=== PATIENT | female | born 1955 | race Caucasian/White ===

== ENCOUNTER 2020-05-22 17:13 | Inpatient (IN) | payer OTHER, SELFPAY ==
[2020-05-22] VITALS (9 sets, daily range): BP systolic 92–140; BP diastolic 69–91; PULSE 80–100; RESP 13–18; TEMP 36.4–37.1; O2SAT 94–98; BMI 33.2; BMI 28.0
--- NOTE | 2020-05-22 18:25 | EKG12_ITS ---
Test Reason : Blood Pressure : / mmHG Vent. Rate : 090 BPM Atrial Rate : 090 BPM P-R Int : 146 ms QRS Dur : 086 ms QT Int : 352 ms P-R-T Axes : 049 054 028 degrees QTc Int : 430 ms Normal sinus rhythm Normal ECG Confirmed by KRISTIAN SANDOVAL, FELICIA ([id number]), avid editor MANI WILLIS ([id number]) on 05/24/2020 2:07:47 PM Referred By: MAEGAN Confirmed By:OCTAVIO TOWNSEND MD
--- NOTE | 2020-05-22 18:35 | RAD_ITS ---
STUDY: X-RAY CHEST REASON FOR EXAM: Female, 64 years old. COVID positive, shortness of breath TECHNIQUE: Single AP portable view of the chest. COMPARISON: January 15, 2015 FINDINGS: There are monitoring devices. There are mild mid and lower lung increased opacities. There is no demonstrated pleural abnormality. Normal size heart. Normal mediastinum and noah. Normal visualized pulmonary arteries. Normal visualized aortic arch and descending thoracic aorta. Normal visualized thoracic spine. Normal visualized ribs, clavicles, and shoulders. There is no demonstrated abnormality of the visualized soft tissue structures of the upper abdomen. RAD/Chest 1 View (Portable) IMPRESSION: Bilateral pneumonia or edema. Electronically Signed: Troy Trujillo MD at 19:07 EST , Service support ,
--- NOTE | 2020-05-22 18:45 | ED.VISSUMM ---
- ER Visit Summary Date of Service: 05/22/20 Chief Complaint: Shortness of breath History of Present Illness: The patient is a 64 F presenting with shortness of breath. She was diagnosed with Covid on May 16. She states over the past few days she became increasingly short of breath with exertion. She has had a cough. She had near syncope. She has had fatigue. She has had nausea and diarrhea. She denies chest pain. She states she was told to come to the hospital if her pulse ox was low. She states her pulse ox has been 85% on room air. She lives alone. Physical Examination: Vitals are stable. Patient is afebrile. Alert no acute distress. Pulse ox 98% on nasal cannula. HEENT exam is unremarkable. Neck is supple. Lungs are diminished bilaterally. Heart is regular rate and rhythm. Abdomen is soft nontender nondistended. Extremities are unremarkable. Skin is warm and dry. No focal neurologic deficit. Remainder of exam is unremarkable. Emergency Department Course and Treatment: EKG is sinus rhythm rate of 90 with no acute ischemic changes. Chest x-ray shows bilateral pneumonia. CBC shows white count 3.1, chemistries show sodium 132, potassium 3.1, glucose 208, BUN 26, creatinine 1.3. Troponin is negative. She was given Decadron p.o. Patient has been hypoxic at home. She lives alone therefore does not qualify for home O2 protocol from ED. Discussed with the hospitalist for admission. Disposition: Admission Impression: Covid pneumonia, hypoxia This note was generated with [employer] dictation software. It may contain incorrect words, spelling, and punctuation that were not noted in review of the chart prior to signing ED Disposition - Plan for ED Patient: Referrals: Darion Manning MD [Primary Care Provider] -
[2020-05-22 18:50] LABS: Absolute Lymphocyte Count 0.59 X10^3/uL (0.83-4.51); Hemoglobin 12.8 g/dL (12.0-15.0); Lymphocyte # 0.59 X10^3/ul (4.0); Mean Corp Hgb Conc 32.8 g/dL (32-36); Mean Corpuscular Hgb 29.3 pg (27.0-32.0); Mean Corpuscular Volume 89.2 fL (81-99); Mean Platelet Vol. 11.3 fl (6.2-12.0); Monocyte# 0.51 X10^3/uL; Monocyte% 16.5 % (0-10); NRBC Flagged by Analyzer 0 % (0-5); Neutrophil # 1.97 X10^3/uL (2.7-7.7); Neutrophil % 63.5 % (47-70); POSITIVE DIFFERENTIAL YES; POSITIVE MORPHOLOGY YES; Platelet Count 155 K/mm3 (150-450); RBC Distribution Width CV 13.8 % (11.6-14.6); RBC Distribution Width SD 45.1 fl (35.1-43.9); Red Blood Count 4.37 M/mm3 (4.2-5.4); White Blood Count 3.1 K/mm3 (4.4-11.0)
[2020-05-22 19:02] LABS: Anion Gap 10 (5-15); BUN 26 mg/dL (7-18); Calcium,Total 8.3 mg/dL (8.5-10.1); Chloride 94 mmol/L (98-107); EST Glomerular Filtration Rate 44 mL/min (>60); Est Glom Filt Rate - Afr Amer 53 mL/min (>60); Estimated Creatinine Clearance 38.25 ml/min; Glucose 208 mg/dL (74-106); Potassium 3.1 mmol/L (3.5-5.1); Sodium Level 132 mmol/L (136-145)
[2020-05-22 19:28] LABS: Differential Indicated SCAN CRITERIA MET
[2020-05-22 19:29] LABS: Atypical Lymphocyte RARE %; Reactive Lymphocyte 1+
--- NOTE | 2020-05-22 20:13 | HP.PCM_ITS ---
Problem List (1) COVID-19 Status: Acute (2) SARS (severe acute respiratory syndrome) Status: Acute History of Present Illness Date of Admission: 05/22/20 Chief Complaint: Dyspnea on exertion The patient is a 64 year old F with a significant history of hypertension and diabetes mellitus who presents emergency department with 1 day history of persistent dyspnea with exertion. Additionally patient checked her home oxygen saturation and it was 85%. She reports a dry cough; weakness; malaise; joint pain; loss of taste; loss of smell; fever and chills. Her Covid test was positive on May 16, 2020. Past Medical History Medical History: Medical History (Last Reviewed 05/23/20 @ 01:[address] Lars Boyd MD) Diabetes E11.9 Hypertension I10 Allergies Iodinated Contrast Media [Iodinated Contrast Media - IV Dye] Allergy (Verified 05/22/20 17:13) Rash Sulfa (Sulfonamide Antibiotics) Allergy (Verified 05/22/20 17:13) Rash Home Medications: Ambulatory Orders Medication Instructions Recorded Metoprolol(XL)Succ [Toprol Xl] 50 mg PO DAILY 07/24/13 Rosuvastatin Calcium [Crestor] 5 mg PO DAILY 07/24/13 Triamterene 37.5MG/Hctz 25MG 1 tablet PO DAILY 07/24/13 [Maxzide 37.5 mg-25 mg Tablet] Ondansetron [Zofran Odt] 4 mg PO Q8H PRN PRN #10 tablet 07/25/13 Ascorbic Acid [Vitamin C] 1,000 mg PO DAILY 05/22/20 Cinnamon Bark [Cinnamon] 1,000 mg PO DAILY 05/22/20 metFORMIN (XR) [Glucophage Xr] 500 mg PO BID 05/22/20 Surgical History: hysterectomy, - - Right parotid gland surgery Smoking Status: Never smoker - *Family History Maternal History Items: Stroke Paternal History Items: Cancer - His father had prostate cancer Review of Systems Constitutional: Reports: Chills - Now resolved, Fever - Now resolved, Malaise, Weakness, Fatigue. Denies: Weight Change HEENT: Denies: Head Aches, Sinus Congestion, Sinus Drainage Cardiovascular: Denies: Chest Pain, Palpitations Respiratory: Reports: Cough, Shortness of breath upon exertion. Denies: Sputum production Gastrointestinal: Denies: Abdominal Pain, Nausea, Vomiting Genitourinary: Denies: Dysuria Musculoskeletal: Denies: Joint Pain, Joint Tenderness Skin: Denies: Rash, Wounds Neurological: Denies: Numbness, Tingling, Focal weakness Psychiatric: Denies: Anxiety, Depression, Homicidal Ideations, Suicidal Ideations Hematologic/ Lymphatic: Denies: Easy Bruising, Easy Bleeding VTE Information - Inpt Only VTE Present on Admission: No VTE Mechan Device Prophylaxis: None VTE Pharm Prophylaxis ordered?: Yes Patient Problems: Active and Suspected Problems (Last Updated 05/22/20 @ 20:[address] Lars Boyd MD) COVID-19 (Acute) SARS (severe acute respiratory syndrome) (Acute) - Physical Exam Vitals/I&O's: Vital Signs Temp Pulse Resp BP Pulse Ox 98.1 F 82 17 121/76 H 98 05/22/20 19:12 05/22/20 19:12 05/22/20 19:12 05/22/20 19:12 05/22/20 19:12 Oxygen Flow Rate (L/min) 2 Oxygen Delivery Method Nasal Cannula Weight: 87.7 kg Body Mass Index (BMI) 33.2 General: Alert, Oriented x3, Cooperative HEENT: Atraumatic, PERRLA, EOMI, Normocephalic Neck: Supple, No JVD, Negative Carotid Bruits Lungs: Rales Cardiovascular: Regular rate, Normal S1, Normal S2, No murmurs Abdomen: Bowel Sounds Present, Soft, Non Tender Extremities: No edema, Capillary Refill Less than 3 Seconds Skin: No rashes, No breakdown Musculoskeletal: No Tenderness to Palpation of Joints or Extremities Neurological: Cranial nerves II-XII grossly intact Psych/Mental Status: Normal Affect, Appropriate Laboratory Results 05/22/20 17:23: WBC 3.1 L, RBC 4.37, Hgb 12.8, Hct 39.0, MCV 89.2, MCH 29.3, MCHC 32.8, RDW Std Deviation 45.1 H, RDW Coeff of Silvia 13.8, Plt Count 155, MPV 11.3, Immature Gran % (Auto) 1.000 H, Neut % (Auto) 63.5, Lymph % (Auto) 19.0, [place] % (Auto) 16.5 H, Eos % (Auto) 0.0, Baso % (Auto) 0.0, Absolute Neuts (auto) 2.0, Absolute Lymphs (auto) 0.59 L, Nucleated RBC % 0, Diff Path Review May foll, Atypical Lymphocytes RARE, Reactive Lymphocytes 1+ 05/22/20 17:23: Sodium 132 L, Potassium 3.1 L, Chloride 94 L, Carbon Dioxide 28.0, Anion Gap 10, BUN 26 H, Creatinine 1.30 H, Estim Creat Clear Calc 38.25, Est GFR (MDRD) Af Amer 53 L, Est GFR (MDRD) Non-Af 44 L, BUN/Creatinine Ratio 20.0, Glucose 208 H, Calcium 8.3 L, Troponin I < 0.015 Assessment/Plan All Active Problems (Last Updated 05/22/20 @ 20:[address] Lars Boyd MD) COVID-19 (Acute) SARS (severe acute respiratory syndrome) (Acute) SARS COVID-19 Positive Covid test. Pressure chest x-ray by radiologist: Bilateral pneumonia or edema. Actual chest x-ray image was independently reviewed. Bilateral opacity with right worse than left. Procalcitonin, strep pneumonia antigen and Legionella urine antigen ordered. Decadron IV ordered given at emergency department. Decadron p.o. daily. Remdesivir with patient. However patient will think more about remdesivir. Tylenol for fever and Mucinex for cough ordered. Hypokalemia Replaced at the emergency department. Patient is on diuretics. Potassium 40 mEq daily ordered. Trend CMP. Diabetes mellitus Blood glucose elevated on presentation. With Decadron anticipate blood glucose to further increase. Hold home Metformin. Accu-Cheks with correction scale insulin ordered. Hypertension On presentation blood pressure was elevated Triamterene and hydrochlorothiazide continued Metoprolol continued Trend blood pressure and adjust blood pressure medications. DVT prophylaxis Subcutaneous Lovenox ordered Inpatient E&M: 56282 Init Hosp L3
[2020-05-22] MEDS: dexAMETHasone 4 MG Tablet 6 MG PO (20:24)
[2020-05-22 21:16] LABS: D-Dimer Quantitative (DVT/PE) 1.08 FEU/ug/m (0.27-0.49)
[2020-05-22 21:25] LABS: Bedside Glucose 225 mg/dL (70-110)
[2020-05-22 21:36] LABS: Procalcitonin 0.08 ng/mL (0.00-0.09)
[2020-05-22] MEDS: Enoxaparin 30 MG/0.3 ML Syringe SC (21:51)
[2020-05-22] MEDS: guaiFENesin 1,200 MG Tablet 1200 MG PO (21:51)
[2020-05-22] MEDS: Insulin Lispro 100 UNIT/ML INSULN.PEN SC (21:52)
[2020-05-23] VITALS (8 sets, daily range): BP systolic 117–152; BP diastolic 68–87; PULSE 73–86; RESP 15–20; TEMP 36.3–36.8; O2SAT 93–95
--- NOTE | 2020-05-23 06:31 | NURSING ---
Pt's daughter Natasha from [employer] called in for update. Per pt, okay to give daughter updates. She is a PT/RT in [place]. ERICK Kaye.
[2020-05-23] MEDS: Insulin Lispro 100 UNIT/ML INSULN.PEN SC ×4 (06:47→21:24)
[2020-05-23 06:55] LABS: Bedside Glucose 294 mg/dL (70-110)
[2020-05-23 07:03] LABS: Absolute Lymphocyte Count 0.43 X10^3/uL (0.83-4.51); Absolute Neutrophil Count 1.1 X10^3/uL (2.0-7.7); Hematocrit 38.1 % (37-47); Hemoglobin 12.3 g/dL (12.0-15.0); Lymphocyte # 0.43 X10^3/ul (4.0); Lymphocyte % 26.1 % (19-41); Mean Corp Hgb Conc 32.3 g/dL (32-36); Mean Corpuscular Hgb 29.1 pg (27.0-32.0); Mean Corpuscular Volume 90.3 fL (81-99); Mean Platelet Vol. 11.4 fl (6.2-12.0); Monocyte# 0.13 X10^3/uL; Monocyte% 7.9 % (0-10); NRBC Flagged by Analyzer 0 % (0-5); Neutrophil # 1.08 X10^3/uL (2.7-7.7); Neutrophil % 65.4 % (47-70); POSITIVE DIFFERENTIAL YES; POSITIVE MORPHOLOGY YES; Platelet Count 155 K/mm3 (150-450); RBC Distribution Width CV 13.8 % (11.6-14.6); RBC Distribution Width SD 46.1 fl (35.1-43.9); Red Blood Count 4.22 M/mm3 (4.2-5.4); White Blood Count 1.7 K/mm3 (4.4-11.0)
[2020-05-23 07:11] LABS: Differential Indicated SCAN CRITERIA MET
[2020-05-23 07:31] LABS: ALB/GLOB Ratio 0.7 RATIO (0.9-2.4); AST(SGOT) 20 U/L (15-37); Alanine Aminotransfer ALT/SGPT 20 U/L (13-56); Albumin, Serum 3.4 g/dL (3.2-5.0); Alkaline Phosphatase 77 U/L (45-117); Anion Gap 7 (5-15); BUN 26 mg/dL (7-18); BUN/Creat Ratio 21.8 RATIO (10-20); Chloride 95 mmol/L (98-107); Creatinine, Serum 1.19 mg/dL (0.55-1.02); EST Glomerular Filtration Rate 49 mL/min (>60); Est Glom Filt Rate - Afr Amer 59 mL/min (>60); Estimated Creatinine Clearance 50.57 ml/min; Glucose 272 mg/dL (74-106); Potassium 3.6 mmol/L (3.5-5.1); Protein, Total 8.4 g/dL (6.4-8.2); Sodium Level 131 mmol/L (136-145)
[2020-05-23] MEDS: guaiFENesin 1,200 MG Tablet 1200 MG PO ×2 (08:21→21:24)
[2020-05-23] MEDS: Ascorbic Acid 500 MG Tablet 1000 MG PO (08:22)
[2020-05-23] MEDS: Metoprolol(XL)Succ 50 MG Tablet PO (08:22)
[2020-05-23] MEDS: dexAMETHasone 4 MG Tablet 6 MG PO (08:23)
[2020-05-23] MEDS: Triamterene 37.5MG/Hctz 25MG Capsule 1 CAP PO (08:23)
[2020-05-23] MEDS: Enoxaparin 30 MG/0.3 ML Syringe SC ×2 (08:24→21:23)
--- NOTE | 2020-05-23 11:50 | CASEMGMT ---
ERICK PERKINS ASSESSMENT COVID-19 +. Pt in isolation precautions. ERICK PERKINS placed call to pt's room for initial transition planning/care coordination assessment. ERICK PERKINS introduced self and role at [facility]. Pt voices understanding and consents to assessment at this time. Pt is A/O at this time and answers all questions appropriately. Care providers, pharmacy, and demographics verified/updated at this time. PCP: Dr Manning Specialists: Dr Siu--custom ski maker Preferred Pharmacy:[facility] Insurance: [employer] Prescription Benefit: Yes Living Will/HPOA: States has both LW and Healthcare POA, who is her daughter, Ashlee Ochoa. LNOK:Daughter, Ashlee Living Arrangements: Lives alone in ranch-style home w/2 steps to enter. Independent w/ADL's and IADL's. Pt states she has had groceries delivered to her home recently and has a good supply of food @ home. Her daughter can get other groceries and medications/supplies as needed. Transportation: Pt states drives self and states no transportation concerns at this time. Thinks daughter, Ashlee, will take her home @ discharge. DME: States has the following DME: [employer]. No Home O2. If needs O2 @ discharge, denies preference of DME company. HHC/SNF: No history of either. Pt wishes to return home and states has no concerns with going home at time of discharge. CM to follow for home oxygen needs and any discharge planning/needs. Pt voices no concerns/needs at this time. Advised pt to ask for CM if any questions/concerns/needs arise. Voices understanding. PLAN: Home. Follow for Home O2 needs at discharge. Julia ROCK RN, CM
[2020-05-23 13:01] LABS: Bedside Glucose 475 mg/dL (70-110)
[2020-05-23 14:01] LABS: Pathologist Review Reviewed
[2020-05-23 14:06] LABS: Pathologist Review Reviewed
--- NOTE | 2020-05-23 14:42 | PCM.HP.ID ---
Problem List (1) COVID-19 Status: Acute Reason for Consult: covid Consulted by: Dr. Hicks History of Present Illness: The patient is a 64 year old F with sx starting 05/15 with fever, chills, dyspnea, cough. Tested (+) covid 05/16. Had change in taste, aches, severe fatigue, then developed some nausea, diarrhea, and lost 15lbs over a week. Worsening dyspnea, sats down to mid 80s at home, called EMS, admitted on dex and O2. Feeling about the same, still chills, aches, nausea, dyspnea, cough. Lives alone. Full ROS performed and neg except as noted above. - Medical History Surgical History: reviewed Allergies/Adverse Reactions: Allergies Iodinated Contrast Media [Iodinated Contrast Media - IV Dye] Allergy (Verified 05/22/20 17:13) Rash Sulfa (Sulfonamide Antibiotics) Allergy (Verified 05/22/20 17:13) Rash Home Medications: Ambulatory Orders Medication Instructions Recorded Metoprolol(XL)Succ [Toprol Xl] 50 mg PO DAILY 07/24/13 Rosuvastatin Calcium [Crestor] 5 mg PO DAILY 07/24/13 Triamterene 37.5MG/Hctz 25MG 1 tablet PO DAILY 07/24/13 [Maxzide 37.5 mg-25 mg Tablet] Ondansetron [Zofran Odt] 4 mg PO Q8H PRN PRN #10 tablet 07/25/13 Ascorbic Acid [Vitamin C] 1,000 mg PO DAILY 05/22/20 Cinnamon Bark [Cinnamon] 1,000 mg PO DAILY 05/22/20 metFORMIN (XR) [Glucophage Xr] 500 mg PO BID 05/22/20 - Social History Tobacco Use: non-smoker Vital Signs Temp Pulse Resp BP Pulse Ox 97.4 F L 78 15 122/71 H 93 05/23/20 13:34 05/23/20 13:34 05/23/20 13:34 05/23/20 13:34 05/23/20 13:34 Oxygen Flow Rate (L/min) 2 Oxygen Delivery Method Nasal Cannula Weight: 86 kg Body Mass Index (BMI) 28.0 Microbiology Past 72 Hours 05/22/20 22:15 Legionella Antigen - Final Urine, Clean Catch 05/22/20 22:15 Streptococcus pneumoniae Antigen (M - Final Urine, Clean Catch Laboratory Tests Past 24 Hrs 05/22/20 05/22/20 05/22/20 17:23 17:23 17:23 WBC 3.1 L RBC 4.37 Hgb 12.8 Hct 39.0 MCV 89.2 MCH 29.3 MCHC 32.8 RDW Std Deviation 45.1 H RDW Coeff of Silvia 13.8 Plt Count 155 MPV 11.3 Immature Gran % (Auto) 1.000 H Neut % (Auto) 63.5 Lymph % (Auto) 19.0 [place] % (Auto) 16.5 H Eos % (Auto) 0.0 Baso % (Auto) 0.0 Absolute Neuts (auto) 2.0 Absolute Lymphs (auto) 0.59 L Nucleated RBC % 0 Diff Path Review Reviewed Atypical Lymphocytes RARE Reactive Lymphocytes 1+ D-Dimer Quant (PE/DVT) 1.08 H* Sodium 132 L Potassium 3.1 L Chloride 94 L Carbon Dioxide 28.0 Anion Gap 10 BUN 26 H Creatinine 1.30 H Estim Creat Clear Calc 38.25 Est GFR (MDRD) Af Amer 53 L Est GFR (MDRD) Non-Af 44 L BUN/Creatinine Ratio 20.0 Glucose 208 H Calcium 8.3 L Total Bilirubin AST ALT Alkaline Phosphatase Troponin I < 0.015 Total Protein Albumin Globulin Albumin/Globulin Ratio Procalcitonin 05/22/20 05/23/20 05/23/20 17:23 06:22 06:22 WBC 1.7 L RBC 4.22 Hgb 12.3 Hct 38.1 MCV 90.3 MCH 29.1 MCHC 32.3 RDW Std Deviation 46.1 H RDW Coeff of Silvia 13.8 Plt Count 155 MPV 11.4 Immature Gran % (Auto) 0.600 Neut % (Auto) 65.4 Lymph % (Auto) 26.1 [place] % (Auto) 7.9 Eos % (Auto) 0.0 Baso % (Auto) 0.0 Absolute Neuts (auto) 1.1 L Absolute Lymphs (auto) 0.43 L Nucleated RBC % 0 Diff Path Review Reviewed Atypical Lymphocytes Reactive Lymphocytes D-Dimer Quant (PE/DVT) Sodium 131 L Potassium 3.6 Chloride 95 L Carbon Dioxide 29.0 Anion Gap 7 BUN 26 H Creatinine 1.19 H Estim Creat Clear Calc 50.57 Est GFR (MDRD) Af Amer 59 L Est GFR (MDRD) Non-Af 49 L BUN/Creatinine Ratio 21.8 H Glucose 272 H Calcium 9.0 Total Bilirubin 0.40 AST 20 ALT 20 Alkaline Phosphatase 77 Troponin I Total Protein 8.4 H Albumin 3.4 Globulin 5.0 H Albumin/Globulin Ratio 0.7 L Procalcitonin 0.08 - Other Studies Radiology: [] reviewed Other Studies: [] Route of nutrition/ use of supplements: [] Nutritional Intake: [] IV Site: [] [place] Catheter: [] - Physical Exam General: Alert, Cooperative HEENT: Atraumatic, PERRLA, EOMI Neck: Supple, No Nodes Lungs: Diminished Cardiovascular: Regular rate, Regular Rhythm Abdomen: Soft, Non Tender, Non-Distended Extremities: No edema Skin: No rashes IV Site: Peripheral, without redness Musculoskeletal: No Tenderness to Palpation of Joints or Extremities Neurological: Cranial nerves II-XII grossly intact - Assessment/Plan Antibiotics: [] Assessment/Plan: [] Active and Suspected Problems (Last Reviewed 05/23/20 @ 01:[address] Lars Boyd MD) COVID-19 (Acute) SARS (severe acute respiratory syndrome) (Acute) covid with hypoxia - sx started 05/15. On dex. Lovenox 30mg bid. Ddimer mild elevation. Had long discussion with her, she agrees to start remdesivir, will order daily labs. Will follow, thank you, d/w primary team
--- NOTE | 2020-05-23 14:45 | PCM.PN.HOSP ---
Patient Problems: Active and Suspected Problems (Last Reviewed 05/23/20 @ 01:[address] Lars Boyd MD) COVID-19 (Acute) SARS (severe acute respiratory syndrome) (Acute) Subjective: Patient seen and examined. He was admitted with a complaint of shortness of breath and said her oxygen at home was 85%. She was found to have COVID-19 infection and test was positive on May 16, 2020. She is on IV Decadron. Patient seen and examined. She felt well. Review of symptoms otherwise negative. Patient refused to start remdesivir because she says she is not sure about the medication and would like to talk to the infectious disease doctor some more about it. She has remained hemodynamically stable. Vitals/I&O's: Vital Signs Temp Pulse Resp BP Pulse Ox 97.4 F L 78 15 122/71 H 93 05/23/20 13:34 05/23/20 13:34 05/23/20 13:34 05/23/20 13:34 05/23/20 13:34 Oxygen Flow Rate (L/min) 2 Oxygen Delivery Method Nasal Cannula Weight: 189 lb 9.561 oz Body Mass Index (BMI) 28.0 Intake and Output for Last 24 Hours 05/21/20 05/22/20 05/23/20 23:59 23:59 23:59 Intake Total 300 / 300 820 / 820 Balance 300 / 300 820 / 820 General: Alert, Oriented x3, Cooperative, No apparent distress HEENT: Atraumatic, PERRLA, EOMI, Normocephalic Oral: Moist Mucosa Neck: Supple, No JVD, Negative Carotid Bruits Lungs: - - diminished breath sounds bibasally, no wheezes or crackles. on 2L of oxygen. Cardiovascular: Regular rate, Regular Rhythm, Normal S1, Normal S2, No murmurs Abdomen: Bowel Sounds Present, Soft, Non Tender, Non-Distended, No Hepato-splenomegaly Extremities: No edema, Capillary Refill Less than 3 Seconds Skin: No rashes, No breakdown Musculoskeletal: No Tenderness to Palpation of Joints or Extremities Lymphatic: No Cervical, Supraclavicular, or Inguinal Adenopathy Neurological: Cranial nerves II-XII grossly intact, Neuro grossly intact, Motor Exam 5/5 strength throughout Psych/Mental Status: Normal Affect, Appropriate, Alert and oriented to time, place, person, mood and affect Microbiology Past 72 Hours 05/22/20 22:15 Urine, Clean Catch Legionella Antigen - Final 05/22/20 22:15 Urine, Clean Catch Streptococcus pneumoniae Antigen (M - Final Laboratory Results 05/22/20 17:23: WBC 3.1 L, RBC 4.37, Hgb 12.8, Hct 39.0, MCV 89.2, MCH 29.3, MCHC 32.8, RDW Std Deviation 45.1 H, RDW Coeff of Silvia 13.8, Plt Count 155, MPV 11.3, Immature Gran % (Auto) 1.000 H, Neut % (Auto) 63.5, Lymph % (Auto) 19.0, [place] % (Auto) 16.5 H, Eos % (Auto) 0.0, Baso % (Auto) 0.0, Absolute Neuts (auto) 2.0, Absolute Lymphs (auto) 0.59 L, Nucleated RBC % 0, Diff Path Review Reviewed, Atypical Lymphocytes RARE, Reactive Lymphocytes 1+ 05/22/20 17:23: Sodium 132 L, Potassium 3.1 L, Chloride 94 L, Carbon Dioxide 28.0, Anion Gap 10, BUN 26 H, Creatinine 1.30 H, Estim Creat Clear Calc 38.25, Est GFR (MDRD) Af Amer 53 L, Est GFR (MDRD) Non-Af 44 L, BUN/Creatinine Ratio 20.0, Glucose 208 H, Calcium 8.3 L, Troponin I < 0.015 05/22/20 17:23: D-Dimer Quant (PE/DVT) 1.08 H* 05/22/20 17:23: Procalcitonin 0.08 05/22/20 21:11: POC Glucose 225 H 05/23/20 06:22: WBC 1.7 L, RBC 4.22, Hgb 12.3, Hct 38.1, MCV 90.3, MCH 29.1, MCHC 32.3, RDW Std Deviation 46.1 H, RDW Coeff of Silvia 13.8, Plt Count 155, MPV 11.4, Immature Gran % (Auto) 0.600, Neut % (Auto) 65.4, Lymph % (Auto) 26.1, [place] % (Auto) 7.9, Eos % (Auto) 0.0, Baso % (Auto) 0.0, Absolute Neuts (auto) 1.1 L, Absolute Lymphs (auto) 0.43 L, Nucleated RBC % 0, Diff Path Review Reviewed 05/23/20 06:22: Sodium 131 L, Potassium 3.6, Chloride 95 L, Carbon Dioxide 29.0, Anion Gap 7, BUN 26 H, Creatinine 1.19 H, Estim Creat Clear Calc 50.57, Est GFR (MDRD) Af Amer 59 L, Est GFR (MDRD) Non-Af 49 L, BUN/Creatinine Ratio 21.8 H, Glucose 272 H, Calcium 9.0, Total Bilirubin 0.40, AST 20, ALT 20, Alkaline Phosphatase 77, Total Protein 8.4 H, Albumin 3.4, Globulin 5.0 H, Albumin/Globulin Ratio 0.7 L 05/23/20 06:46: POC Glucose 294 H 05/23/20 12:53: POC Glucose 475 H* Diagnostic Data Chest X-Ray 05/22/20 18:35 IMPRESSION: Bilateral pneumonia or edema. Electronically Signed: Troy Trujillo MD at 19:07 EST , Service support , Current Medications Acetaminophen (Acetaminophen 325 Mg Tablet) 650 mg PO Q6H PRN PRN PRN Reason: Pain Score 1-10/Temp > 100.7 F Ascorbic Acid (Ascorbic Acid 500 Mg Tablet) 1,000 mg PO DAILY [facility] Last Admin: 05/23/20 08:22 Dose: 1,000 mg Documented by: Atorvastatin Calcium (Atorvastatin Calcium 10 Mg Tablet) 10 mg PO QHS [facility] Last Admin: 05/22/20 21:51 Dose: Not Given Documented by: Dexamethasone (Dexamethasone 4 Mg Tablet) 6 mg PO DAILY [facility] Stop: 05/31/20 10:01 Last Admin: 05/23/20 08:23 Dose: 6 mg Documented by: Dextrose (Dextrose 50%-Water 25 Gm/50 Ml Disp.Syrin) 0 gm IV X1 PRN; Protocol PRN Reason: Hypoglycemia Enoxaparin Sodium (Enoxaparin 30 Mg/0.3 Ml Syringe) 30 mg SC BID [facility] Last Admin: 05/23/20 08:24 Dose: 30 mg Documented by: Glucagon (Glucagon 1 Mg/Ml Syringe) 1 mg IM .X1 PRN PRN Reason: Hypoglycemia Guaifenesin (Guaifenesin 1,200 Mg Tablet) 1,200 mg PO BID [facility] Last Admin: 05/23/20 08:21 Dose: 1,200 mg Documented by: Remdesivir 100 mg/ Sodium (Chloride) 250 mls @ 125 mls/hr IV DAILY [facility]; Protocol Stop: 05/27/20 11:59 Remdesivir 200 mg/ Sodium (Chloride) 250 mls @ 125 mls/hr IV X1 ONE; Protocol Stop: 05/23/20 16:40 Insulin Human Lispro (Insulin Lispro 100 Unit/Ml Insuln.Pen) 0 unit SC ACHS [facility]; Protocol Last Admin: 05/23/20 13:32 Dose: 10 units Documented by: Melatonin (Melatonin 3 Mg Tablet) 3 mg PO QHS PRN PRN PRN Reason: INSOMNIA Metoprolol Succinate (Metoprolol(Xl)Succ 50 Mg Tablet) 50 mg PO DAILY [facility] Last Admin: 05/23/20 08:22 Dose: 50 mg Documented by: Ondansetron HCl (Ondansetron 4 Mg/2 Ml Vial) 4 mg IV Q8H PRN PRN PRN Reason: NAUSEA/VOMITING Potassium Chloride (Potassium Chloride 20 Meq Tablet) 40 meq PO DAILY [facility] Last Admin: 05/23/20 08:24 Dose: 40 meq Documented by: Senna/Docusate Sodium (Senna/Docusate Sodium 1 Tablet) 2 tablet PO BID PRN PRN PRN Reason: Constipation Sodium Chloride (0.9% Saline Lock 10 Ml Syringe) 10 - 40 ml IV UD PRN PRN Reason: SALINE FLUSH Triamterene/Hydrochlorothiazide (Triamterene 37.5mg/Hctz 25mg Capsule) 1 cap PO DAILY [facility] Last Admin: 05/23/20 08:23 Dose: 1 cap Documented by: STROKE Vital Signs/Narrative: Vital Signs Temp Pulse Resp BP Pulse Ox 05/23/20 13:34 97.4 F L 78 15 122/71 H 93 Medical Necessity - Tobacco Use Smoking Status: Never smoker Assessment/Plan All Active Problems (Last Reviewed 05/23/20 @ 01:[address] Lars Boyd MD) COVID-19 (Acute) SARS (severe acute respiratory syndrome) (Acute) #Acute hypoxic respiratory insufficiency due to COVID 19 infection on 2L of oxygen by nasal canula. Titrate oxygen to maintain sats >90% on IV decadrone. Patient was initially reluctant to take IV remdesivir, but after ID spoke to her, she is now willing. Patient therefore started on IV remdesivir titrate oxygen to maintain sats >90% ID on board #COVID 19 infection; as above Hyperlipidemia: On statin #Hypertension: On metoprolol and triamterene hydrochlorothiazide #Type 2 diabetes mellitus: metformin on hold. Insulin sliding scale. Accu-Cheks AC at bedtime. DVT prophylaxis: lovenox 30mg bid Inpatient E&M: 42084 Subs Hosp L2
[2020-05-23] MEDS: 0.9% Saline Lock 10 ML Syringe IV (16:24)
[2020-05-23 17:36] LABS: Bedside Glucose 321 mg/dL (70-110)
[2020-05-23 22:05] LABS: Bedside Glucose 354 mg/dL (70-110)
[2020-05-24 03:40] VITALS: BP 142/81; PULSE 70; RESP 19; TEMP 36.2; O2SAT 93
[2020-05-24] MEDS: Insulin Lispro 100 UNIT/ML INSULN.PEN SC ×4 (06:59→22:58)
[2020-05-24 07:01] LABS: Hematocrit 35.9 % (37-47); Hemoglobin 11.5 g/dL (12.0-15.0); Mean Corpuscular Volume 90.7 fL (81-99); Mean Platelet Vol. 11.2 fl (6.2-12.0); Platelet Count 215 K/mm3 (150-450); RBC Distribution Width CV 13.8 % (11.6-14.6); RBC Distribution Width SD 46.4 fl (35.1-43.9); Red Blood Count 3.96 M/mm3 (4.2-5.4); White Blood Count 5.1 K/mm3 (4.4-11.0)
[2020-05-24 07:10] LABS: Bedside Glucose 227 mg/dL (70-110)
[2020-05-24 07:28] LABS: ALB/GLOB Ratio 0.7 RATIO (0.9-2.4); AST(SGOT) 21 U/L (15-37); Alanine Aminotransfer ALT/SGPT 28 U/L (13-56); Albumin, Serum 3.1 g/dL (3.2-5.0); Alkaline Phosphatase 71 U/L (45-117); Anion Gap 6 (5-15); BUN 31 mg/dL (7-18); BUN/Creat Ratio 29.5 RATIO (10-20); Chloride 99 mmol/L (98-107); Creatinine, Serum 1.05 mg/dL (0.55-1.02); EST Glomerular Filtration Rate 56 mL/min (>60); Est Glom Filt Rate - Afr Amer 68 mL/min (>60); Estimated Creatinine Clearance 57.31 ml/min; Globulin 4.5 g/dL (2.2-4.2); Glucose 240 mg/dL (74-106); Potassium 3.7 mmol/L (3.5-5.1); Protein, Total 7.6 g/dL (6.4-8.2); Sodium Level 133 mmol/L (136-145)
[2020-05-24 08:10] VITALS: O2SAT 92
[2020-05-24 08:11] VITALS: BP 139/71; PULSE 68; RESP 16; TEMP 36.6; O2SAT 91
[2020-05-24 08:16] VITALS: BP 139/71; PULSE 68
[2020-05-24] MEDS: Metoprolol(XL)Succ 50 MG Tablet PO (08:16)
[2020-05-24] MEDS: Triamterene 37.5MG/Hctz 25MG Capsule 1 CAP PO (08:16)
[2020-05-24] MEDS: guaiFENesin 1,200 MG Tablet 1200 MG PO ×2 (08:16→22:55)
[2020-05-24] MEDS: Ascorbic Acid 500 MG Tablet 1000 MG PO (08:17)
[2020-05-24] MEDS: dexAMETHasone 4 MG Tablet 6 MG PO (08:17)
[2020-05-24] MEDS: 0.9% Saline Lock 10 ML Syringe IV (12:23)
[2020-05-24] MEDS: Enoxaparin 30 MG/0.3 ML Syringe SC ×2 (12:23→22:55)
[2020-05-24 12:46] LABS: Bedside Glucose 342 mg/dL (70-110)
--- NOTE | 2020-05-24 12:48 | PN_ITS ---
Patient Problems: Active and Suspected Problems (Last Reviewed 05/23/20 @ 01:[address] Lars Boyd MD) COVID-19 (Acute) SARS (severe acute respiratory syndrome) (Acute) Subjective: Patient seen and examined. She feels better today. She felt her shortness of breath was improving. Review of systems was otherwise negative. She is on 3L of oxygen. She decided to start remdesivir yesterday. Vitals/I&O's: Vital Signs Temp Pulse Resp BP Pulse Ox 97.8 F 68 16 139/71 H 91 05/24/20 08:11 05/24/20 08:16 05/24/20 08:11 05/24/20 08:16 05/24/20 08:11 Oxygen Flow Rate (L/min) 3 Oxygen Delivery Method Nasal Cannula Weight: 189 lb 9.561 oz Body Mass Index (BMI) 28.0 Intake and Output for Last 24 Hours 05/22/20 05/23/20 05/24/20 23:59 23:59 23:59 Intake Total 300 / 300 1650 / 1770 240 / 240 Balance 300 / 300 1650 / 1770 240 / 240 General: Alert, Oriented x3, Cooperative, No apparent distress HEENT: Atraumatic, PERRLA, EOMI, Normocephalic Oral: Moist Mucosa Neck: Supple, No JVD, Negative Carotid Bruits Lungs: - - diminished breath sounds bibasally, no wheezes or crackles. on 3L of oxygen. Cardiovascular: Regular rate, Regular Rhythm, Normal S1, Normal S2, No murmurs Abdomen: Bowel Sounds Present, Soft, Non Tender, Non-Distended, No Hepato- splenomegaly Extremities: No edema, Capillary Refill Less than 3 Seconds Skin: No rashes, No breakdown Musculoskeletal: No Tenderness to Palpation of Joints or Extremities Lymphatic: No Cervical, Supraclavicular, or Inguinal Adenopathy Neurological: Cranial nerves II-XII grossly intact, Neuro grossly intact, Motor Exam 5/5 strength throughout Psych/Mental Status: Normal Affect, Appropriate, Alert and oriented to time, place, person, mood and affect Microbiology Past 72 Hours 05/22/20 22:15 Urine, Clean Catch Legionella Antigen - Final 05/22/20 22:15 Urine, Clean Catch Streptococcus pneumoniae Antigen (M - Final Laboratory Results 05/22/20 17:23: Diff Path Review Reviewed 05/23/20 06:22: Diff Path Review Reviewed 05/23/20 12:53: POC Glucose 475 H* 05/23/20 17:22: POC Glucose 321 H 05/23/20 21:18: POC Glucose 354 H 05/24/20 06:25: WBC 5.1, RBC 3.96 L, Hgb 11.5 L, Hct 35.9 L, MCV 90.7, MCH 29.0, MCHC 32.0, RDW Std Deviation 46.4 H, RDW Coeff of Silvia 13.8, Plt Count 215, MPV 11.2 05/24/20 06:25: Sodium 133 L, Potassium 3.7, Chloride 99, Carbon Dioxide 28.0, Anion Gap 6, BUN 31 H, Creatinine 1.05 H, Estim Creat Clear Calc 57.31, Est GFR (MDRD) Af Amer 68, Est GFR (MDRD) Non-Af 56 L, BUN/Creatinine Ratio 29.5 H, Glucose 240 H, Calcium 9.0, Total Bilirubin 0.30, AST 21, ALT 28, Alkaline Phosphatase 71, Total Protein 7.6, Albumin 3.1 L, Globulin 4.5 H, Albumin/Globulin Ratio 0.7 L 05/24/20 06:59: POC Glucose 227 H 05/24/20 12:20: POC Glucose 342 H Current Medications Acetaminophen (Acetaminophen 325 Mg Tablet) 650 mg PO Q6H PRN PRN PRN Reason: Pain Score 1-10/Temp > 100.7 F Ascorbic Acid (Ascorbic Acid 500 Mg Tablet) 1,000 mg PO DAILY [facility] Last Admin: 05/24/20 08:17 Dose: 1,000 mg Documented by: Atorvastatin Calcium (Atorvastatin Calcium 10 Mg Tablet) 10 mg PO QHS [facility] Last Admin: 05/23/20 21:24 Dose: Not Given Documented by: Dexamethasone (Dexamethasone 4 Mg Tablet) 6 mg PO DAILY [facility] Stop: 05/31/20 10:01 Last Admin: 05/24/20 08:17 Dose: 6 mg Documented by: Dextrose (Dextrose 50%-Water 25 Gm/50 Ml Disp.Syrin) 0 gm IV X1 PRN; Protocol PRN Reason: Hypoglycemia Enoxaparin Sodium (Enoxaparin 30 Mg/0.3 Ml Syringe) 30 mg SC BID [facility] Last Admin: 05/24/20 12:23 Dose: 30 mg Documented by: Glucagon (Glucagon 1 Mg/Ml Syringe) 1 mg IM .X1 PRN PRN Reason: Hypoglycemia Guaifenesin (Guaifenesin 1,200 Mg Tablet) 1,200 mg PO BID [facility] Last Admin: 05/24/20 08:16 Dose: 1,200 mg Documented by: Remdesivir 100 mg/ Sodium (Chloride) 250 mls @ 125 mls/hr IV DAILY [facility]; Protocol Stop: 05/27/20 11:59 Last Admin: 05/24/20 12:23 Dose: 125 mls/hr Documented by: Insulin Human Lispro (Insulin Lispro 100 Unit/Ml Insuln.Pen) 0 unit SC ACHS [facility]; Protocol Last Admin: 05/24/20 12:26 Dose: 4 units Documented by: Melatonin (Melatonin 3 Mg Tablet) 3 mg PO QHS PRN PRN PRN Reason: INSOMNIA Metoprolol Succinate (Metoprolol(Xl)Succ 50 Mg Tablet) 50 mg PO DAILY [facility] Last Admin: 05/24/20 08:16 Dose: 50 mg Documented by: Ondansetron HCl (Ondansetron 4 Mg/2 Ml Vial) 4 mg IV Q8H PRN PRN PRN Reason: NAUSEA/VOMITING Potassium Chloride (Potassium Chloride 20 Meq Tablet) 40 meq PO DAILY [facility] Last Admin: 05/24/20 08:17 Dose: 40 meq Documented by: Senna/Docusate Sodium (Senna/Docusate Sodium 1 Tablet) 2 tablet PO BID PRN PRN PRN Reason: Constipation Sodium Chloride (0.9% Saline Lock 10 Ml Syringe) 10 - 40 ml IV UD PRN PRN Reason: SALINE FLUSH Last Admin: 05/24/20 12:23 Dose: 20 ml Documented by: Triamterene/Hydrochlorothiazide (Triamterene 37.5mg/Hctz 25mg Capsule) 1 cap PO DAILY [facility] Last Admin: 05/24/20 08:16 Dose: 1 cap Documented by: Medical Necessity - Tobacco Use Smoking Status: Never smoker Assessment/Plan All Active Problems (Last Reviewed 05/23/20 @ 01:[address] Lars Boyd MD) COVID-19 (Acute) SARS (severe acute respiratory syndrome) (Acute) #Acute hypoxic respiratory insufficiency due to COVID 19 infection * on 3L of oxygen by nasal canula. Titrate oxygen to maintain sats >90% * on IV decadrone and remdesivir * Patient therefore started on IV remdesivir * titrate oxygen to maintain sats >90% * ID on board * #COVID 19 infection; as above Hyperlipidemia: On statin #Hypertension: On metoprolol and triamterene hydrochlorothiazide #Type 2 diabetes mellitus: metformin on hold. Insulin sliding scale. Accu- Cheks AC at bedtime. DVT prophylaxis: lovenox 30mg bid Inpatient E&M: 66005 Subs Hosp L2
[2020-05-24 15:04] VITALS: BP 113/71; PULSE 76; RESP 15; TEMP 36.6; O2SAT 94
--- NOTE | 2020-05-24 16:01 | PN.ID_ITS ---
Patient Problems: Active and Suspected Problems (Last Reviewed 05/23/20 @ 01:[address] Lars Boyd MD) COVID-19 (Acute) SARS (severe acute respiratory syndrome) (Acute) Subjective: Feeling much better today, no fever, aches much better, mild dyspnea. - Physical Exam Vitals/I&O's: Vital Signs Temp Pulse Resp BP Pulse Ox 97.8 F 76 15 113/71 94 05/24/20 15:04 05/24/20 15:04 05/24/20 15:04 05/24/20 15:04 05/24/20 15:04 Oxygen Flow Rate (L/min) 2 Oxygen Delivery Method Nasal Cannula Weight: 86 kg Body Mass Index (BMI) 28.0 Intake and Output for Last 24 Hours 05/22/20 05/23/20 05/24/20 23:59 23:59 23:59 Intake Total 300 / 300 1650 / 1770 1290 / 1290 Balance 300 / 300 1650 / 1770 1290 / 1290 General: Alert, Cooperative, No apparent distress Lungs: Clear to auscultation, Diminished Cardiovascular: Regular rate, Regular Rhythm Abdomen: Soft, Non Tender, Non-Distended Skin: No rashes Microbiology Past 72 Hours 05/22/20 22:15 Urine, Clean Catch Legionella Antigen - Final 05/22/20 22:15 Urine, Clean Catch Streptococcus pneumoniae Antigen (M - Final Laboratory Results 05/23/20 17:22: POC Glucose 321 H 05/23/20 21:18: POC Glucose 354 H 05/24/20 06:25: WBC 5.1, RBC 3.96 L, Hgb 11.5 L, Hct 35.9 L, MCV 90.7, MCH 29.0, MCHC 32.0, RDW Std Deviation 46.4 H, RDW Coeff of Silvia 13.8, Plt Count 215, MPV 11.2 05/24/20 06:25: Sodium 133 L, Potassium 3.7, Chloride 99, Carbon Dioxide 28.0, Anion Gap 6, BUN 31 H, Creatinine 1.05 H, Estim Creat Clear Calc 57.31, Est GFR (MDRD) Af Amer 68, Est GFR (MDRD) Non-Af 56 L, BUN/Creatinine Ratio 29.5 H, Glucose 240 H, Calcium 9.0, Total Bilirubin 0.30, AST 21, ALT 28, Alkaline Phosphatase 71, Total Protein 7.6, Albumin 3.1 L, Globulin 4.5 H, Albumin/Globulin Ratio 0.7 L 05/24/20 06:59: POC Glucose 227 H 05/24/20 12:20: POC Glucose 342 H Current Medications Acetaminophen (Acetaminophen 325 Mg Tablet) 650 mg PO Q6H PRN PRN PRN Reason: Pain Score 1-10/Temp > 100.7 F Ascorbic Acid (Ascorbic Acid 500 Mg Tablet) 1,000 mg PO DAILY [facility] Last Admin: 05/24/20 08:17 Dose: 1,000 mg Documented by: Atorvastatin Calcium (Atorvastatin Calcium 10 Mg Tablet) 10 mg PO QHS [facility] Last Admin: 05/23/20 21:24 Dose: Not Given Documented by: Dexamethasone (Dexamethasone 4 Mg Tablet) 6 mg PO DAILY [facility] Stop: 05/31/20 10:01 Last Admin: 05/24/20 08:17 Dose: 6 mg Documented by: Dextrose (Dextrose 50%-Water 25 Gm/50 Ml Disp.Syrin) 0 gm IV X1 PRN; Protocol PRN Reason: Hypoglycemia Enoxaparin Sodium (Enoxaparin 30 Mg/0.3 Ml Syringe) 30 mg SC BID [facility] Last Admin: 05/24/20 12:23 Dose: 30 mg Documented by: Glucagon (Glucagon 1 Mg/Ml Syringe) 1 mg IM .X1 PRN PRN Reason: Hypoglycemia Guaifenesin (Guaifenesin 1,200 Mg Tablet) 1,200 mg PO BID [facility] Last Admin: 05/24/20 08:16 Dose: 1,200 mg Documented by: Remdesivir 100 mg/ Sodium (Chloride) 250 mls @ 125 mls/hr IV DAILY [facility]; Protocol Stop: 05/27/20 11:59 Last Infusion: 05/24/20 14:30 Dose: Infused Documented by: Insulin Human Lispro (Insulin Lispro 100 Unit/Ml Insuln.Pen) 0 unit SC ACHS [facility]; Protocol Last Admin: 05/24/20 12:26 Dose: 4 units Documented by: Melatonin (Melatonin 3 Mg Tablet) 3 mg PO QHS PRN PRN PRN Reason: INSOMNIA Metoprolol Succinate (Metoprolol(Xl)Succ 50 Mg Tablet) 50 mg PO DAILY [facility] Last Admin: 05/24/20 08:16 Dose: 50 mg Documented by: Ondansetron HCl (Ondansetron 4 Mg/2 Ml Vial) 4 mg IV Q8H PRN PRN PRN Reason: NAUSEA/VOMITING Potassium Chloride (Potassium Chloride 20 Meq Tablet) 40 meq PO DAILY [facility] Last Admin: 05/24/20 08:17 Dose: 40 meq Documented by: Senna/Docusate Sodium (Senna/Docusate Sodium 1 Tablet) 2 tablet PO BID PRN PRN PRN Reason: Constipation Sodium Chloride (0.9% Saline Lock 10 Ml Syringe) 10 - 40 ml IV UD PRN PRN Reason: SALINE FLUSH Last Admin: 05/24/20 12:23 Dose: 20 ml Documented by: Triamterene/Hydrochlorothiazide (Triamterene 37.5mg/Hctz 25mg Capsule) 1 cap PO DAILY [facility] Last Admin: 05/24/20 08:16 Dose: 1 cap Documented by: Medical Necessity - Tobacco Use Smoking Status: Never smoker Route of nutrition/ use of supplements: [] Nutritional Intake: [] IV Site: [] Caballero Catheter: [] - Assessment/Plan Antibiotics: [] Assessment/Plan: [] Active and Suspected Problems (Last Reviewed 05/23/20 @ 01:[address] Lars Boyd MD) COVID-19 (Acute) SARS (severe acute respiratory syndrome) (Acute) covid with hypoxia - sx started 05/15. On dex. Lovenox 30mg bid. Ddimer mild elevation. On remdesivir, feeling much better today. D-dimer 1.1. Ok for home to complete 10 days total dex and 2 weeks low dose xarelto 10mg or eliquis 2.5mg bid. Will follow
[2020-05-24 18:11] LABS: Bedside Glucose 348 mg/dL (70-110)
[2020-05-24 22:43] VITALS: BP 157/79; PULSE 78; RESP 18; TEMP 36.5; O2SAT 95
[2020-05-24] MEDS: Atorvastatin Calcium 10 MG Tablet PO (22:55)
[2020-05-25] VITALS (7 sets, daily range): BP systolic 117–145; BP diastolic 68–81; PULSE 67–84; RESP 16–18; TEMP 35.9–36.5; O2SAT 88–96
[2020-05-25 01:01] LABS: Bedside Glucose 288 mg/dL (70-110)
[2020-05-25] MEDS: Insulin Lispro 100 UNIT/ML INSULN.PEN SC ×3 (06:05→16:36)
[2020-05-25 06:25] LABS: Bedside Glucose 223 mg/dL (70-110)
[2020-05-25 09:26] LABS: Hematocrit 35.8 % (37-47); Hemoglobin 11.5 g/dL (12.0-15.0); Mean Corp Hgb Conc 32.1 g/dL (32-36); Mean Corpuscular Hgb 29.2 pg (27.0-32.0); Mean Corpuscular Volume 90.9 fL (81-99); Mean Platelet Vol. 10.4 fl (6.2-12.0); Platelet Count 280 K/mm3 (150-450); RBC Distribution Width CV 13.9 % (11.6-14.6); RBC Distribution Width SD 46.9 fl (35.1-43.9); Red Blood Count 3.94 M/mm3 (4.2-5.4); White Blood Count 5.8 K/mm3 (4.4-11.0)
[2020-05-25 09:47] LABS: ALB/GLOB Ratio 0.7 RATIO (0.9-2.4); AST(SGOT) 13 U/L (15-37); Alanine Aminotransfer ALT/SGPT 29 U/L (13-56); Albumin, Serum 3.1 g/dL (3.2-5.0); Alkaline Phosphatase 69 U/L (45-117); Anion Gap 6 (5-15); BUN 31 mg/dL (7-18); BUN/Creat Ratio 34.3 RATIO (10-20); Calcium,Total 8.9 mg/dL (8.5-10.1); Chloride 101 mmol/L (98-107); EST Glomerular Filtration Rate 67 mL/min (>60); Est Glom Filt Rate - Afr Amer 81 mL/min (>60); Estimated Creatinine Clearance 66.86 ml/min; Globulin 4.2 g/dL (2.2-4.2); Glucose 203 mg/dL (74-106); Potassium 3.4 mmol/L (3.5-5.1); Protein, Total 7.3 g/dL (6.4-8.2); Sodium Level 135 mmol/L (136-145)
[2020-05-25] MEDS: Triamterene 37.5MG/Hctz 25MG Capsule 1 CAP PO (10:26)
[2020-05-25] MEDS: Enoxaparin 30 MG/0.3 ML Syringe SC ×2 (10:26→22:14)
[2020-05-25] MEDS: dexAMETHasone 4 MG Tablet 6 MG PO (10:26)
[2020-05-25] MEDS: guaiFENesin 1,200 MG Tablet 1200 MG PO ×2 (10:26→22:14)
[2020-05-25] MEDS: Ascorbic Acid 500 MG Tablet 1000 MG PO (10:27)
[2020-05-25] MEDS: Metoprolol(XL)Succ 50 MG Tablet PO (10:27)
[2020-05-25] MEDS: 0.9% Saline Lock 10 ML Syringe IV ×2 (10:36→13:06)
[2020-05-25 12:56] LABS: Bedside Glucose 339 mg/dL (70-110)
--- NOTE | 2020-05-25 14:47 | PN_ITS ---
Patient Problems: Active and Suspected Problems (Last Reviewed 05/23/20 @ 01:[address] Lars Boyd MD) COVID-19 (Acute) SARS (severe acute respiratory syndrome) (Acute) Subjective: Patient seen and examined. She says she feels more tired today. She denies fever, and thinks her shortness of breath is getting better. She has remained otherwise stable. Vitals/I&O's: Vital Signs Temp Pulse Resp BP Pulse Ox 97.7 F L 84 17 117/68 90 05/25/20 10:15 05/25/20 10:27 05/25/20 10:15 05/25/20 10:15 05/25/20 10:21 Oxygen Flow Rate (L/min) [ 3 AMBULATION with Oxygen] Oxygen Flow Rate (L/min) 2 Oxygen Delivery Method Nasal Cannula Weight: 189 lb 9.561 oz Body Mass Index (BMI) 28.0 Intake and Output for Last 24 Hours 05/23/20 05/24/20 05/25/20 23:59 23:59 23:59 Intake Total 1650 / 1770 2140 / 2380 1760 / 1760 Balance 1650 / 1770 2140 / 2380 1760 / 1760 General: Alert, Oriented x3, Cooperative, No apparent distress HEENT: Atraumatic, PERRLA, EOMI, Normocephalic Oral: Moist Mucosa Neck: Supple, No JVD, Negative Carotid Bruits Lungs: - - diminished breath sounds bibasally, no wheezes or crackles. on 2L of oxygen. Cardiovascular: Regular rate, Regular Rhythm, Normal S1, Normal S2, No murmurs Abdomen: Bowel Sounds Present, Soft, Non Tender, Non-Distended, No Hepato- splenomegaly Extremities: No edema, Capillary Refill Less than 3 Seconds Skin: No rashes, No breakdown Musculoskeletal: No Tenderness to Palpation of Joints or Extremities Lymphatic: No Cervical, Supraclavicular, or Inguinal Adenopathy Neurological: Cranial nerves II-XII grossly intact, Neuro grossly intact, Motor Exam 5/5 strength throughout Psych/Mental Status: Normal Affect, Appropriate, Alert and oriented to time, place, person, mood and affect Microbiology Past 72 Hours 05/22/20 22:15 Urine, Clean Catch Legionella Antigen - Final 05/22/20 22:15 Urine, Clean Catch Streptococcus pneumoniae Antigen (M - Final Laboratory Results 05/24/20 17:26: POC Glucose 348 H 05/24/20 22:57: POC Glucose 288 H 05/25/20 06:02: POC Glucose 223 H 05/25/20 08:45: WBC 5.8, RBC 3.94 L, Hgb 11.5 L, Hct 35.8 L, MCV 90.9, MCH 29.2, MCHC 32.1, RDW Std Deviation 46.9 H, RDW Coeff of Silvia 13.9, Plt Count 280, MPV 10.4 05/25/20 08:45: Sodium 135 L, Potassium 3.4 L, Chloride 101, Carbon Dioxide 28.0, Anion Gap 6, BUN 31 H, Creatinine 0.90, Estim Creat Clear Calc 66.86, Est GFR (MDRD) Af Amer 81, Est GFR (MDRD) Non-Af 67, BUN/Creatinine Ratio 34.3 H, Glucose 203 H, Calcium 8.9, Total Bilirubin 0.40, AST 13 L, ALT 29, Alkaline Phosphatase 69, Total Protein 7.3, Albumin 3.1 L, Globulin 4.2, Albumin/Globulin Ratio 0.7 L 05/25/20 12:28: POC Glucose 339 H Current Medications Acetaminophen (Acetaminophen 325 Mg Tablet) 650 mg PO Q6H PRN PRN PRN Reason: Pain Score 1-10/Temp > 100.7 F Ascorbic Acid (Ascorbic Acid 500 Mg Tablet) 1,000 mg PO DAILY [facility] Last Admin: 05/25/20 10:27 Dose: 1,000 mg Documented by: Atorvastatin Calcium (Atorvastatin Calcium 10 Mg Tablet) 10 mg PO QHS [facility] Last Admin: 05/24/20 22:55 Dose: 10 mg Documented by: Dexamethasone (Dexamethasone 4 Mg Tablet) 6 mg PO DAILY [facility] Stop: 05/31/20 10:01 Last Admin: 05/25/20 10:26 Dose: 6 mg Documented by: Dextrose (Dextrose 50%-Water 25 Gm/50 Ml Disp.Syrin) 0 gm IV X1 PRN; Protocol PRN Reason: Hypoglycemia Enoxaparin Sodium (Enoxaparin 30 Mg/0.3 Ml Syringe) 30 mg SC BID [facility] Last Admin: 05/25/20 10:26 Dose: 30 mg Documented by: Glucagon (Glucagon 1 Mg/Ml Syringe) 1 mg IM .X1 PRN PRN Reason: Hypoglycemia Guaifenesin (Guaifenesin 1,200 Mg Tablet) 1,200 mg PO BID [facility] Last Admin: 05/25/20 10:26 Dose: 1,200 mg Documented by: Remdesivir 100 mg/ Sodium (Chloride) 250 mls @ 125 mls/hr IV DAILY [facility]; Protocol Stop: 05/27/20 11:59 Last Admin: 05/25/20 10:28 Dose: 125 mls/hr Documented by: Insulin Human Lispro (Insulin Lispro 100 Unit/Ml Insuln.Pen) 0 unit SC ACHS [facility]; Protocol Last Admin: 05/25/20 12:29 Dose: 5 units Documented by: Melatonin (Melatonin 3 Mg Tablet) 3 mg PO QHS PRN PRN PRN Reason: INSOMNIA Metoprolol Succinate (Metoprolol(Xl)Succ 50 Mg Tablet) 50 mg PO DAILY [facility] Last Admin: 05/25/20 10:27 Dose: 50 mg Documented by: Ondansetron HCl (Ondansetron 4 Mg/2 Ml Vial) 4 mg IV Q8H PRN PRN PRN Reason: NAUSEA/VOMITING Potassium Chloride (Potassium Chloride 20 Meq Tablet) 40 meq PO DAILY [facility] Last Admin: 05/25/20 10:26 Dose: 40 meq Documented by: Senna/Docusate Sodium (Senna/Docusate Sodium 1 Tablet) 2 tablet PO BID PRN PRN PRN Reason: Constipation Sodium Chloride (0.9% Saline Lock 10 Ml Syringe) 10 - 40 ml IV UD PRN PRN Reason: SALINE FLUSH Last Admin: 05/25/20 13:06 Dose: 10 ml Documented by: Triamterene/Hydrochlorothiazide (Triamterene 37.5mg/Hctz 25mg Capsule) 1 cap PO DAILY [facility] Last Admin: 05/25/20 10:26 Dose: 1 cap Documented by: Medical Necessity - Tobacco Use Smoking Status: Never smoker Assessment/Plan All Active Problems (Last Reviewed 05/23/20 @ 01:[address] Lars Boyd MD) COVID-19 (Acute) SARS (severe acute respiratory syndrome) (Acute) #Acute hypoxic respiratory insufficiency due to COVID 19 infection * on 2L of oxygen by nasal canula. Titrate oxygen to maintain sats >90% * on IV decadrone and remdesivir * titrate oxygen to maintain sats >90% * ID on board * #COVID 19 infection; as above #Hypokalemia: potassium is 3.4. Will replace and monitor Hyperlipidemia: On statin #Hypertension: On metoprolol and triamterene hydrochlorothiazide #Type 2 diabetes mellitus: metformin on hold. Insulin sliding scale. Accu- Cheks AC at bedtime. DVT prophylaxis: lovenox 30mg bid Inpatient E&M: 17871 Subs Hosp L2
[2020-05-25 17:01] LABS: Bedside Glucose 358 mg/dL (70-110)
[2020-05-25 22:20] LABS: Bedside Glucose 462 mg/dL (70-110)
[2020-05-25] MEDS: Insulin Lispro 100 UNIT/ML INSULN.PEN 10 UNIT SC (22:44)
[2020-05-25 23:03] LABS: Glucose 372 mg/dL (74-106)
[2020-05-26 04:15] VITALS: BP 137/68; PULSE 68; RESP 16; TEMP 36.2; O2SAT 94
[2020-05-26 04:31] LABS: Bedside Glucose 256 mg/dL (70-110)
[2020-05-26 06:48] LABS: Hematocrit 33.8 % (37-47); Mean Corp Hgb Conc 32.5 g/dL (32-36); Mean Corpuscular Hgb 29.6 pg (27.0-32.0); Mean Corpuscular Volume 90.9 fL (81-99); Mean Platelet Vol. 10.2 fl (6.2-12.0); Platelet Count 290 K/mm3 (150-450); RBC Distribution Width CV 14.1 % (11.6-14.6); RBC Distribution Width SD 47.3 fl (35.1-43.9); Red Blood Count 3.72 M/mm3 (4.2-5.4); White Blood Count 4.7 K/mm3 (4.4-11.0)
[2020-05-26] MEDS: Insulin Lispro 100 UNIT/ML INSULN.PEN SC ×2 (07:01→12:12)
[2020-05-26 07:11] LABS: Bedside Glucose 243 mg/dL (70-110)
[2020-05-26 07:22] LABS: ALB/GLOB Ratio 0.8 RATIO (0.9-2.4); AST(SGOT) 15 U/L (15-37); Alanine Aminotransfer ALT/SGPT 34 U/L (13-56); Alkaline Phosphatase 64 U/L (45-117); Anion Gap 7 (5-15); BUN 33 mg/dL (7-18); BUN/Creat Ratio 35.3 RATIO (10-20); Calcium,Total 8.6 mg/dL (8.5-10.1); Chloride 101 mmol/L (98-107); Creatinine, Serum 0.94 mg/dL (0.55-1.02); EST Glomerular Filtration Rate 64 mL/min (>60); Est Glom Filt Rate - Afr Amer 78 mL/min (>60); Estimated Creatinine Clearance 64.02 ml/min; Glucose 238 mg/dL (74-106); Potassium 3.9 mmol/L (3.5-5.1); Sodium Level 135 mmol/L (136-145)
[2020-05-26 09:37] VITALS: O2SAT 89; O2SAT 92
[2020-05-26 09:40] VITALS: BP 113/68; PULSE 82; RESP 16; TEMP 35.9; O2SAT 93
[2020-05-26] MEDS: guaiFENesin 1,200 MG Tablet 1200 MG PO (09:44)
[2020-05-26] MEDS: Triamterene 37.5MG/Hctz 25MG Capsule 1 CAP PO (09:44)
[2020-05-26] MEDS: dexAMETHasone 4 MG Tablet 6 MG PO (09:44)
[2020-05-26 09:45] VITALS: PULSE 82
[2020-05-26] MEDS: Metoprolol(XL)Succ 50 MG Tablet PO (09:45)
[2020-05-26] MEDS: Ascorbic Acid 500 MG Tablet 1000 MG PO (09:45)
[2020-05-26] MEDS: Enoxaparin 30 MG/0.3 ML Syringe SC (09:45)
--- NOTE | 2020-05-26 12:00 | NURSING ---
Report given to Jessica SUAREZ who is taking over care of pt at this time.
--- NOTE | 2020-05-26 12:01 | DCINST_ITS ---
- Discharge Diagnoses Current Active Problems: Current Active and Chronic Problems (Last Reviewed 05/23/20 @ 01:[address] Lars Boyd MD) COVID-19 (Acute) SARS (severe acute respiratory syndrome) (Acute) You will use the following diet at home:: Calorie/Carbohydrate Controlled (specify 1200, 1400, etc) - 1800 calorie diet Your food should be the consistency of: Regular Discharge Activity: Return to Normal Activity Weight Bearing Status: Weight bearing as tolerated Instructions: Coronavirus Disease 2019 (COVID-19): Overview Additional Instructions: remain in self isolation until 10 days after symptoms have fully resolved. Allergies/Adverse Reactions: Allergies Iodinated Contrast Media [Iodinated Contrast Media - IV Dye] Allergy (Verified 05/22/20 17:13) Rash Sulfa (Sulfonamide Antibiotics) Allergy (Verified 05/22/20 17:13) Rash Medications to take at Discharge Metoprolol(XL)Succ [Toprol Xl (Beta Benjamin)] 50 mg PO DAILY 07/24/13 Rosuvastatin Calcium [Crestor] 5 mg PO DAILY 07/24/13 Triamterene 37.5MG/Hctz 25MG [Maxzide 37.5 mg-25 mg Tablet] 1 tablet PO DAILY 07/24/13 Ondansetron [Zofran Odt] 4 mg PO Q8H PRN PRN #10 tablet 07/25/13 Ascorbic Acid [Vitamin C] 1,000 mg PO DAILY 05/22/20 Cinnamon Bark [Cinnamon] 1,000 mg PO DAILY 05/22/20 metFORMIN (XR) [Glucophage Xr] 500 mg PO BID 05/22/20 Apixaban [Eliquis] 2.5 mg PO BID #28 tab 05/25/20 Dexamethasone [Decadron] 6 mg PO DAILY #6 tab 05/26/20 The following prescriptions were given: Dexamethasone [Decadron] 6 mg PO DAILY #6 tab Transmission Status: Pending to [facility]/pharmacy #[id number] Apixaban [Eliquis] 2.5 mg PO BID #28 tab Transmission Status: Received by [facility] Primary Care Physician: Darion Manning MD [Primary Care Provider] - Please follow up with your Primary Care Physician in: 1-2 weeks Test Results: Test results from this visit will be discussed in further detail at your follow- up appointment, if applicable. Proposed Discharge Date: 05/26/20
--- NOTE | 2020-05-26 12:03 | PCM.DC.SUM ---
Discharge Date and Diagnosis - Problem List Patient Problems: Active and Suspected Problems (Last Reviewed 05/23/20 @ 01:[address] Lars Boyd MD) COVID-19 (Acute) SARS (severe acute respiratory syndrome) (Acute) Date of Admission: 05/22/20 Date of Discharge: 05/26/20 - Primary Discharge Diagnosis Acute Problems: Active Problems (Last Reviewed 05/23/20 @ 01:[address] Lars Boyd MD) COVID-19 (Acute) SARS (severe acute respiratory syndrome) (Acute) acute hypoxic respiratory insufficiency Hospital Course and Treatment Imaging Results: Diagnostic Data Chest X-Ray 05/22/20 18:35 IMPRESSION: Bilateral pneumonia or edema. Electronically Signed: Troy Trujillo MD at 19:07 EST , Service support , infectious diseases Operations: None Procedures: None Summary of Care Provided: The patient is a 64 year old F with a past medical history significant for type 2 diabetes mellitus and hypertension who was admitted through the ED on 05/22/2020 with a complaint of shortness of breath of 1 day. She checked her oxygen saturation at home and it was 85%. She had #dry cough with weakness and malaise and loss of taste, smell and fever and chills. She had tested positive for Covid on 05/17/2020. Chest x-ray done showed bilateral pneumonia or edema with bilateral opacities worse on the right and on the left. She was admitted and managed for acute hypoxic respiratory insufficiency due to COVID-19 infection. She was started on Decadron and oxygen as needed as well as breathing treatments with bronchodilators. Patient was initially reluctant to be administered remdesivir and wanted some more time to think about it. ID was consulted and after ID discussed remdesivir with her, patient was more accepting of it and so she was started on dysuria. Patient shortness of breath gradually improved and she felt much better. Patient was discharged home on 05/26/2020. On day of discharge, her oxygen saturation on room air with ambulation was 89% and at rest was 92% so she therefore did not qualify for home oxygen. She was discharged home on 05/26/2020 with a prescription for p.o. dexamethasone 6 mg daily for 6 days. She is to follow-up with her primary care doctor within 1 to 2 weeks. Patient was counseled that she has remained self isolated for 10 days after his symptoms had completely resolved. Of note, patient had D-dimer which was elevated on admission and she was started on anticoagulation. She was therefore discharged on p.o. Eliquis 2.5 mg twice daily for 2 weeks upon discharge. Patient seen and examined prior to discharge. She had no complaints and felt well. Review of symptoms otherwise negative. Labs and vitals reviewed. Home medication reviewed and reconciled. O/E: Vital Signs Temp Pulse Resp BP Pulse Ox 96.6 F L 82 16 113/68 92 05/26/20 09:40 05/26/20 09:45 05/26/20 09:40 05/26/20 09:40 05/26/20 14:23 [] General: Alert, Oriented x3, Cooperative, No apparent distress HEENT: Atraumatic, PERRLA, EOMI, Normocephalic Oral: Moist Mucosa Neck: Supple, No JVD, Negative Carotid Bruits Lungs: - - diminished breath sounds bibasally, no wheezes or crackles. on 2L of oxygen; was weaned off oxygen Cardiovascular: Regular rate, Regular Rhythm, Normal S1, Normal S2, No murmurs Abdomen: Bowel Sounds Present, Soft, Non Tender, Non-Distended, No Hepato-splenomegaly Extremities: No edema, Capillary Refill Less than 3 Seconds Skin: No rashes, No breakdown Musculoskeletal: No Tenderness to Palpation of Joints or Extremities Lymphatic: No Cervical, Supraclavicular, or Inguinal Adenopathy Neurological: Cranial nerves II-XII grossly intact, Neuro grossly intact, Motor Exam 5/5 strength throughout Psych/Mental Status: Normal Affect, Appropriate, Alert and oriented to time, place, person, mood and affect Plan is for discharge home today. Patient Problems: Active and Suspected Problems (Last Reviewed 05/23/20 @ 01:[address] Lars Boyd MD) COVID-19 (Acute) SARS (severe acute respiratory syndrome) (Acute) - Physical Exam Vitals/I&O's: Vital Signs Temp Pulse Resp BP Pulse Ox 96.6 F L 82 16 113/68 93 05/26/20 09:40 05/26/20 09:45 05/26/20 09:40 05/26/20 09:40 05/26/20 09:40 Oxygen Flow Rate (L/min) [ 3 AMBULATION with Oxygen] Oxygen Flow Rate (L/min) 3 Oxygen Delivery Method Room Air Weight: 189 lb 9.561 oz Body Mass Index (BMI) 28.0 Intake and Output for Last 24 Hours 05/24/20 05/25/20 05/26/20 23:59 23:59 23:59 Intake Total 2140 / 2380 2490 / 2490 700 / 700 Balance 2140 / 2380 2490 / 2490 700 / 700 Laboratory Results 05/25/20 12:28: POC Glucose 339 H 05/25/20 16:35: POC Glucose 358 H 05/25/20 22:01: POC Glucose 462 H* 05/25/20 22:38: Glucose 372 H 05/26/20 04:22: POC Glucose 256 H 05/26/20 06:03: WBC 4.7, RBC 3.72 L, Hgb 11.0 L, Hct 33.8 L, MCV 90.9, MCH 29.6, MCHC 32.5, RDW Std Deviation 47.3 H, RDW Coeff of Silvia 14.1, Plt Count 290, MPV 10.2 05/26/20 06:03: Sodium 135 L, Potassium 3.9, Chloride 101, Carbon Dioxide 27.0, Anion Gap 7, BUN 33 H, Creatinine 0.94, Estim Creat Clear Calc 64.02, Est GFR (MDRD) Af Amer 78, Est GFR (MDRD) Non-Af 64, BUN/Creatinine Ratio 35.3 H, Glucose 238 H, Calcium 8.6, Total Bilirubin 0.40, AST 15, ALT 34, Alkaline Phosphatase 64, Total Protein 7.0, Albumin 3.0 L, Globulin 4.0, Albumin/Globulin Ratio 0.8 L 05/26/20 06:58: POC Glucose 243 H Current Medications Acetaminophen (Acetaminophen 325 Mg Tablet) 650 mg PO Q6H PRN PRN PRN Reason: Pain Score 1-10/Temp > 100.7 F Ascorbic Acid (Ascorbic Acid 500 Mg Tablet) 1,000 mg PO DAILY [facility] Last Admin: 05/26/20 09:45 Dose: 1,000 mg Documented by: Atorvastatin Calcium (Atorvastatin Calcium 10 Mg Tablet) 10 mg PO QHS [facility] Last Admin: 05/25/20 22:13 Dose: Not Given Documented by: Dexamethasone (Dexamethasone 4 Mg Tablet) 6 mg PO DAILY [facility] Stop: 05/31/20 10:01 Last Admin: 05/26/20 09:44 Dose: 6 mg Documented by: Dextrose (Dextrose 50%-Water 25 Gm/50 Ml Disp.Syrin) 0 gm IV X1 PRN; Protocol PRN Reason: Hypoglycemia Enoxaparin Sodium (Enoxaparin 30 Mg/0.3 Ml Syringe) 30 mg SC BID [facility] Last Admin: 05/26/20 09:45 Dose: 30 mg Documented by: Glucagon (Glucagon 1 Mg/Ml Syringe) 1 mg IM .X1 PRN PRN Reason: Hypoglycemia Guaifenesin (Guaifenesin 1,200 Mg Tablet) 1,200 mg PO BID [facility] Last Admin: 05/26/20 09:44 Dose: 1,200 mg Documented by: Remdesivir 100 mg/ Sodium (Chloride) 250 mls @ 125 mls/hr IV DAILY [facility]; Protocol Stop: 05/27/20 11:59 Last Infusion: 05/25/20 12:28 Dose: Infused Documented by: Insulin Human Lispro (Insulin Lispro 100 Unit/Ml Insuln.Pen) 0 unit SC ACHS [facility]; Protocol Last Admin: 05/26/20 07:01 Dose: 6 units Documented by: Melatonin (Melatonin 3 Mg Tablet) 3 mg PO QHS PRN PRN PRN Reason: INSOMNIA Metoprolol Succinate (Metoprolol(Xl)Succ 50 Mg Tablet) 50 mg PO DAILY [facility] Last Admin: 05/26/20 09:45 Dose: 50 mg Documented by: Ondansetron HCl (Ondansetron 4 Mg/2 Ml Vial) 4 mg IV Q8H PRN PRN PRN Reason: NAUSEA/VOMITING Potassium Chloride (Potassium Chloride 20 Meq Tablet) 40 meq PO DAILY [facility] Last Admin: 05/26/20 09:44 Dose: 40 meq Documented by: Senna/Docusate Sodium (Senna/Docusate Sodium 1 Tablet) 2 tablet PO BID PRN PRN PRN Reason: Constipation Sodium Chloride (0.9% Saline Lock 10 Ml Syringe) 10 - 40 ml IV UD PRN PRN Reason: SALINE FLUSH Last Admin: 05/25/20 13:06 Dose: 10 ml Documented by: Triamterene/Hydrochlorothiazide (Triamterene 37.5mg/Hctz 25mg Capsule) 1 cap PO DAILY [facility] Last Admin: 05/26/20 09:44 Dose: 1 cap Documented by: Discharge Diet: Low fat/ Low Cholesterol Discharge Activity: Return to Normal Activity Weight Bearing Status: Weight bearing as tolerated Home Medications: Medications to take at Discharge Metoprolol(XL)Succ [Toprol Xl (Beta Benjamin)] 50 mg PO DAILY 07/24/13 Rosuvastatin Calcium [Crestor] 5 mg PO DAILY 07/24/13 Triamterene 37.5MG/Hctz 25MG [Maxzide 37.5 mg-25 mg Tablet] 1 tablet PO DAILY 07/24/13 Ondansetron [Zofran Odt] 4 mg PO Q8H PRN PRN #10 tablet 07/25/13 Ascorbic Acid [Vitamin C] 1,000 mg PO DAILY 05/22/20 Cinnamon Bark [Cinnamon] 1,000 mg PO DAILY 05/22/20 metFORMIN (XR) [Glucophage Xr] 500 mg PO BID 05/22/20 Apixaban [Eliquis] 2.5 mg PO BID #28 tab 05/25/20 Dexamethasone [Decadron] 6 mg PO DAILY #6 tab 05/26/20 Following Prescriptions Were Given to Patient: Dexamethasone [Decadron] 6 mg PO DAILY #6 tab Transmission Status: Received by [facility]/pharmacy #[id number] Apixaban [Eliquis] 2.5 mg PO BID #28 tab Transmission Status: Received by [facility] Primary Care Physician: Darion Manning MD [Primary Care Provider] - Please follow up with your Primary Care Physician in: 1-2 weeks Patient Instructions: Coronavirus Disease 2019 (COVID-19): Overview Disposition: Home Minutes spent on discharge:: 40 Patient Condition:: Stable Medical Necessity - Tobacco Use Smoking Status: Never smoker Meaningful Use Info Meaningful Use Diagnoses (Choose all that apply): None applicable
[2020-05-26 12:16] LABS: Bedside Glucose 264 mg/dL (70-110)
[2020-05-26 14:23] VITALS: O2SAT 92
[2020-05-26 16:52] VITALS: BP 110/72; PULSE 83; RESP 20; TEMP 36.6; O2SAT 94
== END 2020-05-26 19:51 | disposition home or self-care (01) | DRG 195 ==
LOC: ED 18:24 → PCU 20:12
PROVIDERS: Internal Medicine Infectious Disease; Admitting Provider Hospitalist; Emergency Provider Emergency Medicine; PCP Family Medicine; Visit Provider Student in an Organized Health Care Education/Training Program
DX: J12.81 Pneumonia due to SARS-associated coronavirus (principal); R09.02 Hypoxemia; E78.5 Hyperlipidemia, unspecified; I10 Essential (primary) hypertension; E11.9 Type 2 diabetes mellitus without complications; E87.6 Hypokalemia; Z79.84 Long term (current) use of oral hypoglycemic drugs; Z79.899 Other long term (current) drug therapy; Z80.42 Family history of malignant neoplasm of prostate; Z82.3 Family history of stroke; Z90.710 Acquired absence of both cervix and uterus
CPT/HCPCS: 36415; 71045; 80048; 80053; 82947; 82962; 84145; 84484; 85025; 85027; 85379; 87449; 93005; 97802; 99285; J7040; J7050; A4216

== ENCOUNTER 2020-06-07 07:42 | Emergency (ER) | payer OTHER, SELFPAY ==
[2020-05-22 20:55] VITALS: BMI 28.0
[2020-06-07 07:43] VITALS: BP 154/87; PULSE 133; RESP 17; TEMP 37; O2SAT 99; BMI 27.7
--- NOTE | 2020-06-07 07:47 | RAD_ITS ---
STUDY: X-RAY CHEST REASON FOR EXAM: Female, 64 years old. Tachycardia x2 days, intermittent tingling into Left arm. Diagnosed with Covid 05/16. TECHNIQUE: Single AP portable view of the chest. COMPARISON: Comparison is made with prior study dated 05/22/2020. FINDINGS: EKG electrodes are seen. The lungs are now clear. There is no demonstrated pleural abnormality. Normal size heart. Normal mediastinum and noah. Normal visualized pulmonary arteries. Normal visualized aortic arch and descending thoracic aorta. Normal visualized thoracic spine. Normal visualized ribs, clavicles, and shoulders. There is no demonstrated abnormality of the visualized soft tissue structures of the upper abdomen. RAD/Chest 1 View (Portable) IMPRESSION: The lungs are clear. Electronically Signed: Russ Murphy, at 8:35 EST , Service support ,
--- NOTE | 2020-06-07 07:47 | EKG12_ITS ---
Test Reason : PALPS Blood Pressure : / mmHG Vent. Rate : 106 BPM Atrial Rate : 106 BPM P-R Int : 146 ms QRS Dur : 082 ms QT Int : 332 ms P-R-T Axes : 057 059 056 degrees QTc Int : 441 ms Sinus tachycardia Nonspecific ST abnormality Abnormal ECG Confirmed by KRISTIAN SANDOVAL, FELICIA ([id number]), editorial writer CHELY GELLER ([id number]) on 06/12/2020 9:56:21 A M Referred By: SHAKIRA Confirmed By:OCTAVIO TOWNSEND MD
--- NOTE | 2020-06-07 07:57 | ED.VISSUMM ---
- ER Visit Summary Date of Service: 06/07/20 Chief Complaint: Palpitations History of Present Illness: The patient is a 64 F who presents with palpitations that have been intermittent over the past 2 to 3 days. Patient states they have been constant for the past 2 hours today. Patient states she feels her heart pounding. Patient states that she feels this in her chest and head. Patient also admits to some intermittent tingling in her left arm. Patient states this sensation is unrelated to the palpitations. Patient states her palpitations get worse whenever she moves her exerts herself. Patient states they are better with rest. Patient admits to some fatigue. Patient states she recently was admitted to the hospital for COVID-19 pneumonia. Patient states she still has a slight cough from that but denies any shortness of breath. Patient denies any nausea or vomiting. Patient denies any diaphoresis. Physical Examination: Vital signs are stable except for tachycardia of 133. Patient is afebrile. Patient is in no acute distress. Oral mucosa is pink and moist. Neck is supple. Trachea is midline. There is no JVD noted. Heart was regular and tachycardic. Lungs are clear and equal bilaterally. Abdomen is soft. Bowel sounds are normal. There is no tenderness. There is no rebound or guarding noted. Skin is warm dry. Cranial nerves II through XII are intact. There are no focal motor or sensory deficits noted. Extremities are intact. There is no calf tenderness or edema. Test Results: EKG was obtained. On my interpretation, there is a sinus tachycardia with a rate of 106. There are nonspecific ST-T wave changes noted. There are no acute ST or T wave changes. This was unchanged compared to previous EKG dated 05/22/2020. CBC and basic metabolic profile were obtained. Potassium was 3.0. Glucose was 267. Troponin was normal. Portable 1 view chest x-ray was obtained. On my interpretation, lung hahn are clear. There is normal cardiac silhouette. Bony thorax is normal. There is no acute process noted. Radiologist also interpreted the x-ray and agrees. Emergency Department Course and Treatment: Patient was given IV fluids. Patient was given potassium. Patient was feeling better on reevaluation. Patient's heart rate improved and was normal. Patient was instructed to follow-up with her primary care physician in 5 to 7 days. Patient understood and was agreeable with the plan. All questions were answered. Disposition: Discharge home Impression: 1. Palpitations This note was generated with [employer] dictation software. It may contain incorrect words, spelling, and punctuation that were not noted in review of the chart prior to signing ED Disposition - Plan for ED Patient: Disposition: Home or Assisted Living Diagnosis: Palpitations Instructions: ED Palpitations Referrals: Darion Manning MD [Primary Care Provider] - 5-7 Days
[2020-06-07] MEDS: 0.9% Normal Saline 1,000 ML 1000 ML IV (08:02)
[2020-06-07 08:03] LABS: Basophil# 0.02 X10^3/uL; Basophil% 0.4 % (0-1); Eosinophil# 0.01 X10^3/uL; Eosinophils% 0.2 % (0-5); Hemoglobin 12.2 g/dL (12.0-15.0); Mean Corpuscular Hgb 29.9 pg (27.0-32.0); Mean Corpuscular Volume 90.7 fL (81-99); Mean Platelet Vol. 10.3 fl (6.2-12.0); Monocyte# 0.63 X10^3/uL; Monocyte% 12.6 % (0-10); NRBC Flagged by Analyzer 0 % (0-5); Neutrophil # 3.04 X10^3/uL (2.7-7.7); Neutrophil % 60.8 % (47-70); POSITIVE MORPHOLOGY YES; Platelet Count 160 K/mm3 (150-450); RBC Distribution Width SD 50.1 fl (35.1-43.9); Red Blood Count 4.08 M/mm3 (4.2-5.4)
[2020-06-07 08:08] LABS: Differential Indicated SCAN CRITERIA MET
[2020-06-07 08:21] LABS: ALB/GLOB Ratio 0.9 RATIO (0.9-2.4); AST(SGOT) 13 U/L (15-37); Alanine Aminotransfer ALT/SGPT 22 U/L (13-56); Albumin, Serum 3.6 g/dL (3.2-5.0); Alkaline Phosphatase 87 U/L (45-117); Anion Gap 8 (5-15); BUN 12 mg/dL (7-18); BUN/Creat Ratio 11.8 RATIO (10-20); Calcium,Total 9.5 mg/dL (8.5-10.1); Chloride 98 mmol/L (98-107); Creatinine, Serum 1.02 mg/dL (0.55-1.02); EST Glomerular Filtration Rate 58 mL/min (>60); Est Glom Filt Rate - Afr Amer 70 mL/min (>60); Glucose 267 mg/dL (74-106); Protein, Total 7.6 g/dL (6.4-8.2); Sodium Level 136 mmol/L (136-145)
[2020-06-07 08:26] LABS: Prothrombin Time (Protime)PT. 12.9 SECONDS (11.7-14.9)
[2020-06-07 08:27] LABS: Partial Thromboplast Time 28.2 Seconds (24.1-36.2)
[2020-06-07 08:37] LABS: Reactive Lymphocyte RARE
[2020-06-07 08:49] VITALS: BP 118/70; PULSE 78; RESP 13; O2SAT 99
[2020-06-07 10:06] VITALS: BP 107/86; PULSE 80; RESP 16; O2SAT 95
[2020-06-07 10:07] VITALS: BP 107/86; PULSE 84; RESP 16; O2SAT 96
== END 2020-06-07 10:11 | disposition home or self-care (01) ==
PROVIDERS: Emergency Provider Emergency Medicine; PCP Family Medicine
DX: R00.2 Palpitations (principal); Z86.19 Personal history of other infectious and parasitic diseases
CPT/HCPCS: 71045; 80053; 84484; 85025; 85610; 85730; 93005; 96360; 99284; J7030; A4216

== ENCOUNTER 2024-08-22 09:37 | Emergency (ER) | payer MEDICARE, SELFPAY ==
[2024-08-22] VITALS (16 sets, daily range): BP systolic 134–182; BP diastolic 54–84; PULSE 81–120; RESP 14–22; TEMP 36.4–36.6; O2SAT 95–100; BMI 29.9
--- NOTE | 2024-08-22 10:54 | EX.ED.DYSGE1 ---
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 Bosch at [facility], she has had thrombocytopenia and platelet transfusions, yesterday she started getting extremely weak without any fevers, today she called an ambulance because she was too weak to get up and she started having a spontaneous onset of nosebleed from her left side. She denies any bleeding from anywhere else. She does not diarrhea with no melena or blood. [facility] Medical History (Updated 08/22/24 @ 12:[address] Troy Haney MD) AML (acute myeloblastic leukemia) Diabetes Hypertension Home Medications ?Medication ?Instructions ?Recorded ?Last Taken ?Type metoprolol succinate 50 mg 50 mg PO DAILY heart 07/24/13 05/22/20 History tablet,extended release 24 hr rosuvastatin 10 mg tablet 5 mg PO DAILY cholesterol 07/24/13 05/22/20 History triamterene 37.5 1 tab PO DAILY fluid 07/24/13 05/22/20 History mg-hydrochlorothiazide 25 mg tablet (Maxzide-25mg) ondansetron 4 mg disintegrating 4 mg PO Q8H PRN PRN Nausea #10 tabs 07/25/13 05/22/20 Rx tablet ascorbic acid (vitamin C) 1,000 mg 1,000 mg PO DAILY supplement 05/22/20 05/22/20 History tablet cinnamon bark 500 mg capsule 1,000 mg PO DAILY supplement 05/22/20 Unknown History metformin 500 mg tablet,extended 500 mg PO BID diabetes 05/22/20 Unknown History release 24 hr apixaban 2.5 mg tablet 2.5 mg PO BID #28 tabs 05/25/20 Unknown Rx dexamethasone 4 mg tablet 6 mg (1.5 x 4 mg) PO DAILY #6 tabs 05/26/20 Unknown Rx Allergy/AdvReac Type Severity Reaction Status Date / Time Iodinated Contrast Media Allergy Rash Verified 08/22/24 09:38 (Iodinated Contrast Media - IV Dye) Sulfa (Sulfonamide Allergy Rash Verified 08/22/24 09:38 Antibiotics) Social History Smoking Status: Unknown if ever smoked ROS ROS ED Constitutional Constitutional ED: Reports fatigue and weakness; Denies chills or fever(s) Eyes Eyes: Denies change in vision or diplopia ENT ENT ED: Reports epistaxis; Denies rhinorrhea or sore throat Cardiovascular Cardiovascular: Reports leg edema; Denies chest pain or palpitations Respiratory/Chest Respiratory/Chest: Denies cough or dyspnea Gastrointestinal Gastrointestinal: Reports diarrhea; Denies abdominal pain, melena, nausea or vomiting Genitourinary Genitourinary ED: Denies dysuria or hematuria Musculoskeletal Musculoskeletal: Denies back pain or neck pain Integumentary Reports rash; Denies abscess Neurologic Neurologic: Denies headache(s), paresthesias or weakness Psychiatric Psychiatric: Denies anxiety or suicidal thoughts EXAM Physical Exam Const Vital Signs: 08/22/24 09:38 08/22/24 09:38 08/22/24 10:20 Temperature 97.6 F L 97.6 F L Temperature Source Oral Oral Pulse Rate 91 91 Respiratory Rate 15 15 Respiratory Effort Normal Respiratory Pattern Normal Blood Pressure 166/78 H 166/78 H Blood Pressure Mean 107 107 Pulse Ox 99 99 Oxygen Delivery Method Room Air Room Air 08/22/24 10:48 08/22/24 11:14 08/22/24 12:00 Temperature 97.8 F 97.6 F L 97.7 F L Temperature Source Oral Oral Oral Pulse Rate 92 85 95 Respiratory Rate 17 14 19 H Respiratory Effort Respiratory Pattern Blood Pressure 160/73 H 136/54 H 182/84 H Blood Pressure Mean 102 81 116 Pulse Ox 100 100 100 Oxygen Delivery Method Room Air Room Air Room Air 08/22/24 13:00 08/22/24 13:59 08/22/24 15:00 Temperature Temperature Source Pulse Rate 81 87 110 H Respiratory Rate 16 16 15 Respiratory Effort Respiratory Pattern Blood Pressure 146/55 H 137/57 H 164/67 H Blood Pressure Mean 85 83 99 Pulse Ox 100 98 100 Oxygen Delivery Method Room Air Room Air Room Air 08/22/24 16:00 Temperature Temperature Source Pulse Rate 93 Respiratory Rate 15 Respiratory Effort Respiratory Pattern Blood Pressure 136/56 H Blood Pressure Mean 82 Pulse Ox 99 Oxygen Delivery Method Room Air Positive well nourished and well developed General Appearance ED: well developed and NAD HEENT Reports dry mucous membranes HEENT Narrative: Active mild left, better with nasal clamp, epistaxis clear on the right. Posterior pharyngeal blood without active bleeding. normocephalic and atraumatic Mouth ED: Yes dry mucous membranes Mouth: dry mucous membranes Eyes PERRL and EOMs intact bilaterally Neck full ROM and supple Resp normal respiratory effort and clear to auscultation bilaterally Cardio regular rate, regular rhythm and no murmurs GI non-tender and non-distended Auscultation: normoactive bowel sounds Palpation: soft Back/Spine no CVA tenderness General Back: other FROM Extremity normal to inspection General Extremety ED: Yes edema; Negative for pulses abnormal or tenderness General Extremity: edema bilateral lower extremity Details: moderate; Negative for pulses abnormal Neuro oriented x3, CN's II-XII intact bilaterally and no sensory deficits noted Neuro Narrative: Nonfocal, oriented Sensorium / Orientation: awake and alert Motor Exam: general weakness Psych mental status grossly normal Skin no wounds Skin Narrative: Scattered petechia on legs. Ecchymoses on forearms. MDM MDM MDM Narrative Medical decision making narrative: Patient is pancytopenic with platelet count of 2, rest of her labs are noted. His hemoglobin is 7.9, and her hematology economic development specialist wants her to be transferred up to [facility], they can transfuse her if they wish there as well as platelets. For now we took care of her nosebleed, see the procedure note. Her vital signs are stable as is her epistaxis. We observed the patient and she did well. I reviewed all of her labs which show pancytopenia, and discussed with Dr. Hart with the leukemia service at [facility], who agrees that she should be transferred there for couple different reasons especially to get platelets and agrees with waiting until she gets her to do that if her bleeding is stable. Awaiting bed availability. Lab Data Attestation: I reviewed the patient's lab results. 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 Corrected WBC 1.7 L RBC 2.71 L Hgb 7.9 L Hct 22.4 L MCV 82.7 MCH 29.2 MCHC 35.3 RDW Std Deviation 43.7 RDW Coeff of Silvia 14.6 Plt Count 2 L* MPV TNP Neut % (Auto) Not Reportable Absolute Neuts (auto) 0.8 L Absolute Lymphs (auto) 0.36 L Total Counted 100 Neutrophils % (Manual) 46 L Band Neutrophils % 1 Lymphocytes % (Manual) 20 Monocytes % (Manual) 9 Basophils % (Manual) 1 Metamyelocytes % 9 H Myelocytes % 3 H Promyelocytes % 2 H Blast Cells % 9 H* Nucleated RBCs/100 WBC 5 Diff Path Review May foll Platelet Estimate MKD DEC Ovalocytes 2+ PT 18.3 H INR 1.5 APTT 34.8 Sodium 136 Potassium 4.4 Chloride 101 Carbon Dioxide 21.3 Anion Gap 14 BUN 21 H Creatinine 0.75 Estim Creat Clear Calc 82.52 Est GFR (MDRD) Non-Af 88 BUN/Creatinine Ratio 27.4 H Glucose 304 H Calcium 8.5 Blood Type O POSITIVE Antibody Screen NEGATIVE Radiography Diagnostic Testing: Clinical Impression(s) from Imaging Studies Chest X-Ray 08/22/24 11:25 IMPRESSION: NEGATIVE CHEST. Reading Location: [id number] Management Discussion w/another healthcare provider: Roll Up Guider Operator Procedures Other Procedures Procedure(s): Epistaxis care: With sipping water, intranasal left-sided Radha mix aerosolized,, and trying to blow her nose she was eventually able to spit out a large clot of blood, and evacuate her nasal cavity, breathing air through both sides feeling much less uncomfortable, at that point a noninflatable 5.5 cm rapid Rhino was placed in the left naris, she tolerated this well and she has good hemostasis. Discharge Plan Triage Chief Complaint: Weakness ED Provider: Troy Haney Dx/Rx/DC Orders Clinical Impression: Acute anterior epistaxis, Pancytopenia, AML (acute myeloblastic leukemia), Generalized weakness Prescriptions: No Action metoprolol succinate 50 MG tablet 50 mg PO DAILY triamterene-hydrochlorothiazid [Maxzide-25mg] 1 EACH tablet 1 tab PO DAILY rosuvastatin 10 MG tablet 5 mg PO DAILY ondansetron 4 MG tablet 4 mg PO Q8H PRN PRN (Reason: Nausea) Qty: 10 0RF ascorbic acid (vitamin C) 1,000 MG tablet 1,000 mg PO DAILY cinnamon bark 500 MG capsule 1,000 mg PO DAILY metformin 500 MG tablet 500 mg PO BID apixaban 2.5 MG tablet 2.5 mg PO BID Qty: 28 0RF dexamethasone 4 MG tablet 6 mg PO DAILY Qty: 6 0RF Primary Care Provider: Darion Manning Referrals: Darion Manning MD [Primary Care Provider] - Print Language: Sinhala Disposition Disposition: Acute Care Hospital Discharge Location: [facility]
[2024-08-22] MEDS: 0.9% Normal Saline (500mL Bag) 500 ML 999 ML IV (11:15)
[2024-08-22] MEDS: Mixture 30 ML Bottle TOPICAL (11:15)
[2024-08-22 11:16] LABS: Hematocrit 22.4 % (37-47); Hemoglobin 7.9 g/dL (12.0-15.0); Mean Corp Hgb Conc 35.3 g/dL (32-36); Mean Corpuscular Hgb 29.2 pg (27.0-32.0); Mean Corpuscular Volume 82.7 fL (81-99); POSITIVE COUNT YES; POSITIVE DIFFERENTIAL YES; POSITIVE MORPHOLOGY YES; RBC Distribution Width CV 14.6 % (11.6-14.6); RBC Distribution Width SD 43.7 fl (35.1-43.9); Red Blood Count 2.71 M/mm3 (4.2-5.4)
[2024-08-22 11:25] LABS: Differential Indicated MANUAL DIFF; International Normalized Ratio 1.5; Platelet Count 2 K/mm3 (150-450); Prothrombin Time (Protime)PT. 18.3 SECONDS (11.7-14.9)
--- NOTE | 2024-08-22 11:25 | RAD_ITS ---
PROCEDURE: CHEST 1 VIEW (PORTABLE) REASON FOR EXAM: Weakness. History of leukemia. TECHNIQUE: Frontal view of the chest. COMPARISON: Comparison is made with prior study dated June 07, 2020. FINDINGS: A central line is seen with the tip in the right atrium. EKG electrodes are seen. The heart size is normal. The lungs are clear. RAD/Chest 1 View (Portable) IMPRESSION: NEGATIVE CHEST. Reading Location: [facility]
[2024-08-22 11:26] LABS: Partial Thromboplast Time 34.8 Seconds (24.1-36.2)
[2024-08-22 11:33] LABS: Anion Gap 14 (5-15); BUN 21 mg/dL (4-19); BUN/Creat Ratio 27.4 RATIO (10-20); Calcium,Total 8.5 mg/dL (7.6-11.0); Carbon Dioxide 21.3 mmol/L (21.0-32.0); Chloride 101 mmol/L (98-108); Creatinine, Serum 0.75 mg/dL (0.70-1.20); EST Glomerular Filtration Rate 88 (>60); Estimated Creatinine Clearance 82.52 ml/min (50-250); Glucose 304 mg/dL (70-99); Potassium 4.4 mmol/L (3.3-5.1); Sodium Level 136 mmol/L (133-145)
[2024-08-22 12:03] LABS: Basophil 1 % (0-1); Blast 9 % (0-0); Corrected WBC 1.7 K/mm3 (4.4-11.0); Lymphocyte 20 % (19-41); Metamyelocyte 9 % (0-1); Monocyte 9 % (0-10); Myelocyte 3 % (0-0); Neutrophil-Band 1 % (0-5); Neutrophil-Segmented 46 % (47-70); Nucleated Red Bld Cells,Manual 5 % (0-5); Promyelocyte 2 % (0-0); Total Cells Counted 100 (MANUAL DIFF)
[2024-08-22 12:05] LABS: Ovalocyte 2+; Platelet Estimate MKD DEC (ADEQ)
[2024-08-22 12:12] LABS: Absolute Lymphocyte Count 0.36 X10^3/uL (0.83-4.51); Absolute Neutrophil Count 0.8 X10^3/uL (2.0-7.7); Pathologist Review May foll
[2024-08-22 17:32] LABS: Bacteria 0 SEEN /hpf (None Seen); Mucous, Urine 0 SEEN /hpf (<or=2+); Squamous Epithelial Cells - UA 0 SEEN /hpf (5-10)
[2024-08-22 17:46] LABS: Color, Urine Yellow (Yellow); Glucose, Dipstick 1000 mg/dl (Normal); Ketone-Dipstick Negative (Negative); Leukocyte Esterase-Dipstick Negative /ul (Negative); Nitrite-Dipstick Negative (Negative); Occult Blood-Urine 25 /ul (Negative); Protein-Dipstick 100 mg/dl (Negative); Specific Gravity, Urine 1.015 (1.002-1.030); Urine Bilirubin Dipstick Negative (Negative); Urine Clarity Clear (Clear); Urine Urobilinogen Normal (Normal)
[2024-08-22 18:11] LABS: Red Blood Cells-Urine 5-10 SEEN /hpf (0-5); White Blood Cells 0-5 SEEN /hpf (0-5)
[2024-08-22] MEDS: Budesonide 3 MG CAPSULE.EC PO (21:43)
[2024-08-22] MEDS: Acyclovir 200 MG Capsule 400 MG PO (21:44)
[2024-08-22] MEDS: Insulin Glargine-YFGN 100 UNIT/ML Pen 15 UNIT SC (21:45)
[2024-08-22] MEDS: Pantoprazole Sodium 40 MG Tablet PO (21:45)
[2024-08-22] MEDS: Atorvastatin Calcium 10 MG Tablet PO (21:45)
[2024-08-22] MEDS: TRANEXAMIC ACID 650 MG TABLET PO (21:47)
[2024-08-22 21:58] LABS: Bedside Glucose 316 mg/dL (74-106)
[2024-08-23] VITALS (31 sets, daily range): BP systolic 129–182; BP diastolic 51–85; PULSE 85–109; RESP 14–22; TEMP 36.4–37.1; O2SAT 94–98
[2024-08-23] MEDS: Acetaminophen 500 MG Tablet 1000 MG PO ×2 (04:03→13:47)
[2024-08-23] MEDS: DiphenhydrAMINE 50 MG/ML Syringe 25 MG IV ×2 (04:03→14:09)
[2024-08-23] MEDS: Budesonide 3 MG CAPSULE.EC PO ×2 (06:40→15:16)
[2024-08-23] MEDS: metFORMIN (XR) 500 MG Tablet PO ×2 (08:22→18:40)
[2024-08-23] MEDS: Potassium Chloride Oral Tablet 20 MEQ PO ×2 (08:22→18:27)
[2024-08-23] MEDS: Insulin Lispro 100 UNIT/ML INSULN.PEN 6 UNIT SC ×3 (08:22→18:27)
[2024-08-23 08:45] LABS: Bedside Glucose 265 mg/dL (74-106)
[2024-08-23 10:08] LABS: Absolute Lymphocyte Count 0.23 X10^3/uL (0.83-4.51); Absolute Neutrophil Count 0.3 X10^3/uL (2.0-7.7); Basophil# 0.01 X10^3/uL; Basophil% 1.2 % (0-1); Hematocrit 16.8 % (37-47); Hemoglobin 5.8 g/dL (12.0-15.0); Lymphocyte # 0.23 X10^3/ul (0.83-4.51); Lymphocyte % 26.7 % (19-41); Mean Corp Hgb Conc 34.5 g/dL (32-36); Mean Platelet Vol. 10.1 fl (6.2-12.0); Monocyte# 0.09 X10^3/uL; Monocyte% 10.5 % (0-10); Neutrophil # 0.26 X10^3/uL (2.7-7.7); Neutrophil % 30.2 % (47-70); POSITIVE COUNT YES; POSITIVE DIFFERENTIAL YES; POSITIVE MORPHOLOGY YES; Platelet Count 6 K/mm3 (150-450); RBC Distribution Width CV 14.6 % (11.6-14.6); RBC Distribution Width SD 45.1 fl (35.1-43.9); White Blood Count 0.9 K/mm3 (4.4-11.0)
[2024-08-23 10:11] LABS: Differential Indicated SCAN CRITERIA MET
--- NOTE | 2024-08-23 10:33 | ED.RN ---
CALLED BACK FOR A BED UPDATE. THEY SAID NO BEDS, AND FELL BEHIND ON DCS.
[2024-08-23 10:36] LABS: Anion Gap 11 (5-15); BUN 19 mg/dL (4-19); BUN/Creat Ratio 25.6 RATIO (10-20); Calcium,Total 8.4 mg/dL (7.6-11.0); Carbon Dioxide 23.3 mmol/L (21.0-32.0); Chloride 102 mmol/L (98-108); Creatinine, Serum 0.75 mg/dL (0.70-1.20); EST Glomerular Filtration Rate 88 (>60); Estimated Creatinine Clearance 82.52 ml/min (50-250); Glucose 319 mg/dL (70-99); Potassium 4.2 mmol/L (3.3-5.1); Sodium Level 136 mmol/L (133-145)
[2024-08-23 10:37] LABS: Platelet Estimate MKD DEC (ADEQ)
[2024-08-23 10:38] LABS: Anisocytosis 1+; Hypochromasia 2+
[2024-08-23] MEDS: Triamterene 37.5MG/Hctz 25MG Capsule 1 CAP PO (11:01)
[2024-08-23] MEDS: Tacrolimus 0.5 MG Capsule PO (11:02)
[2024-08-23] MEDS: Pantoprazole Sodium 40 MG Tablet PO (11:02)
[2024-08-23] MEDS: Metoprolol(XL)Succ 50 MG Tablet PO (11:02)
[2024-08-23] MEDS: Ergocalciferol 1.25 MG (50, 000 UNIT) Capsule PO (11:03)
[2024-08-23] MEDS: Acyclovir 200 MG Capsule 400 MG PO (11:03)
[2024-08-23] MEDS: TRANEXAMIC ACID 650 MG TABLET PO (12:10)
[2024-08-23 12:32] LABS: Bedside Glucose 270 mg/dL (74-106)
--- NOTE | 2024-08-23 14:02 | ED.RN ---
called again for a meal tray for pt
--- NOTE | 2024-08-23 15:04 | ED.RN ---
Jessy from [facility], states daughter calling and they state pt is still on their list but no beds available.
--- NOTE | 2024-08-23 15:29 | PCM.HP.STD ---
HPI - General HPI Narrative JANN FIGUEROA, is a 68 F who presents [facility] Medical History (Updated 08/22/24 @ 12:[address] Troy Haney MD) AML (acute myeloblastic leukemia) Diabetes Hypertension Home Medications ?Medication ?Instructions ?Recorded ?Last Taken ?Type metoprolol succinate 50 mg 50 mg PO DAILY heart 07/24/13 05/22/20 History tablet,extended release 24 hr rosuvastatin 10 mg tablet 5 mg PO DAILY cholesterol 07/24/13 05/22/20 History triamterene 37.5 1 tab PO DAILY fluid 07/24/13 05/22/20 History mg-hydrochlorothiazide 25 mg tablet (Maxzide-25mg) ondansetron 4 mg disintegrating 4 mg PO Q8H PRN PRN Nausea #10 tabs 07/25/13 05/22/20 Rx tablet ascorbic acid (vitamin C) 1,000 mg 1,000 mg PO DAILY supplement 05/22/20 05/22/20 History tablet cinnamon bark 500 mg capsule 1,000 mg PO DAILY supplement 05/22/20 Unknown History metformin 500 mg tablet,extended 500 mg PO BID diabetes 05/22/20 Unknown History release 24 hr dexamethasone 4 mg tablet 6 mg (1.5 x 4 mg) PO DAILY #6 tabs 05/26/20 Unknown Rx acyclovir 400 mg tablet 400 mg PO BID 08/22/24 Unknown History budesonide 3 mg 3 mg PO TID 08/22/24 Unknown History capsule,delayed,extended release cholecalciferol (vitamin D3) 1,250 1,250 mcg PO QWEEK 08/22/24 Unknown History mcg (50,000 unit) capsule insulin glargine 100 unit/mL (3 15 unit subcut QPM 08/22/24 Unknown History mL) subcutaneous pen (Basaglar KwikPen U-100 Insulin) insulin lispro 100 unit/mL 6 unit subcut TID 08/22/24 Unknown History subcutaneous pen (Humalog KwikPen (U-100) Insulin) pantoprazole 40 mg tablet,delayed 40 mg PO BID 08/22/24 Unknown History release potassium chloride 20 mEq 20 meq PO BID 08/22/24 Unknown History tablet,extended release(part/cryst) (Klor-Con M) rosuvastatin 5 mg tablet (Crestor) 5 mg PO QHS 08/22/24 Unknown History tacrolimus 0.5 mg capsule, 0.5 mg PO DAILY 08/22/24 Unknown History immediate-release tranexamic acid 650 mg tablet 650 mg PO BID 08/22/24 Unknown History Allergy/AdvReac Type Severity Reaction Status Date / Time Iodinated Contrast Media Allergy Rash Verified 08/22/24 09:38 (Iodinated Contrast Media - IV Dye) Sulfa (Sulfonamide Allergy Rash Verified 08/22/24 09:38 Antibiotics) Social History Smoking Status: Unknown if ever smoked Vital Signs Vital Signs Vital Signs: 08/22/24 16:00 08/22/24 17:00 08/22/24 17:42 Temperature Temperature Source Pulse Rate 93 120 H 90 Respiratory Rate 15 22 H 15 Blood Pressure 136/56 H 137/56 H 134/54 H Blood Pressure Mean 82 83 80 Blood Pressure Source Blood Pressure Position Blood Pressure Location Pulse Ox 99 100 99 Oxygen Delivery Method Room Air Room Air Room Air 08/22/24 18:01 08/22/24 18:59 08/22/24 20:00 Temperature Temperature Source Pulse Rate 95 104 H 92 Respiratory Rate 15 15 16 Blood Pressure 134/54 H 152/63 H 138/56 H Blood Pressure Mean 80 92 80 Blood Pressure Source Blood Pressure Position Blood Pressure Location Pulse Ox 99 100 99 Oxygen Delivery Method Room Air Room Air Room Air 08/22/24 21:00 08/22/24 22:00 08/22/24 23:00 Temperature Temperature Source Pulse Rate 88 88 104 H Respiratory Rate 14 20 H 17 Blood Pressure 134/57 H 146/63 H 136/56 H Blood Pressure Mean 82 90 82 Blood Pressure Source Blood Pressure Position Blood Pressure Location Pulse Ox 100 97 95 Oxygen Delivery Method Room Air Room Air Room Air 08/23/24 00:00 08/23/24 01:00 08/23/24 02:00 Temperature Temperature Source Pulse Rate 96 95 89 Respiratory Rate 14 22 H 14 Blood Pressure 137/54 H 129/54 H 157/66 H Blood Pressure Mean 81 79 96 Blood Pressure Source Blood Pressure Position Blood Pressure Location Pulse Ox 97 96 98 Oxygen Delivery Method Room Air Room Air Room Air 08/23/24 03:00 08/23/24 04:00 08/23/24 04:39 Temperature 98.0 F Temperature Source Oral Pulse Rate 96 101 H 91 Respiratory Rate 15 16 15 Blood Pressure 132/52 H 153/64 H 153/64 H Blood Pressure Mean 78 93 93 Blood Pressure Source Monitor Blood Pressure Position Semi-Fowlers Blood Pressure Location Right Arm Pulse Ox 98 97 96 Oxygen Delivery Method Room Air Room Air Room Air 08/23/24 04:54 08/23/24 05:00 08/23/24 05:00 Temperature 98.2 F 98.1 F Temperature Source Oral Oral Pulse Rate 93 90 88 Respiratory Rate 16 14 16 Blood Pressure 150/58 H 150/58 H 139/68 H Blood Pressure Mean 88 88 91 Blood Pressure Source Monitor Monitor Blood Pressure Position Semi-Fowlers Semi-Fowlers Blood Pressure Location Right Arm Right Arm Pulse Ox 97 96 97 Oxygen Delivery Method Room Air Room Air 08/23/24 05:00 08/23/24 05:44 08/23/24 05:59 Temperature 98.1 F 98.1 F 98.2 F Temperature Source Oral Oral Oral Pulse Rate 88 91 85 Respiratory Rate 16 14 14 Blood Pressure 139/68 H 136/69 H 133/62 H Blood Pressure Mean 91 91 85 Blood Pressure Source Monitor Monitor Monitor Blood Pressure Position Semi-Fowlers Semi-Fowlers Semi-Fowlers Blood Pressure Location Right Arm Right Arm Right Arm Pulse Ox 97 95 96 Oxygen Delivery Method Room Air Room Air Room Air 08/23/24 06:00 08/23/24 06:05 08/23/24 07:00 Temperature 97.9 F 98.0 F Temperature Source Oral Temporal Pulse Rate 85 97 90 Respiratory Rate 14 16 17 Blood Pressure 133/62 H 152/69 H 133/51 H Blood Pressure Mean 85 96 78 Blood Pressure Source Monitor Blood Pressure Position Semi-Fowlers Blood Pressure Location Right Arm Pulse Ox 96 95 97 Oxygen Delivery Method Room Air Room Air Room Air 08/23/24 08:00 08/23/24 09:00 08/23/24 11:30 Temperature 97.7 F L 97.7 F L Temperature Source Oral Oral Pulse Rate 88 91 89 Respiratory Rate 16 14 14 Blood Pressure 134/59 H 153/57 H 154/63 H Blood Pressure Mean 84 89 93 Blood Pressure Source Blood Pressure Position Blood Pressure Location Pulse Ox 95 95 98 Oxygen Delivery Method Room Air Room Air Room Air 08/23/24 13:50 08/23/24 14:26 08/23/24 14:41 Temperature 97.6 F L 97.6 F L Temperature Source Oral Temporal Pulse Rate 109 H 98 104 H Respiratory Rate 18 16 16 Blood Pressure 170/68 H 169/69 H 157/66 H Blood Pressure Mean 102 102 96 Blood Pressure Source Monitor Monitor Blood Pressure Position Semi-Fowlers Semi-Fowlers Blood Pressure Location Right Arm Right Arm Pulse Ox 97 97 97 Oxygen Delivery Method Room Air Room Air Room Air 08/23/24 15:15 Temperature 97.8 F Temperature Source Oral Pulse Rate 96 Respiratory Rate 17 Blood Pressure 161/70 H Blood Pressure Mean 100 Blood Pressure Source Monitor Blood Pressure Position Semi-Fowlers Blood Pressure Location Right Arm Pulse Ox 97 Oxygen Delivery Method Room Air Weight Weight: 92.2 kg Body Mass Index (BMI) 29.9 Results Lab / Micro Data 08/23/24 09:40 08/23/24 09:40 Labs: Laboratory Results - last 24 hr 08/22/24 10:10: Crossmatch See Detail 08/22/24 17:27: Urine Color Yellow, Urine Clarity Clear, Urine pH 6.0, Ur Specific [place] 1.015, Urine Protein 100 H, Urine Glucose (UA) 1000 H, Urine Ketones Negative, Urine Occult Blood 25 H, Urine Nitrite Negative, Urine Bilirubin Negative, Urine Urobilinogen Normal, Ur Leukocyte Esterase Negative, Urine RBC 5-10 SEEN, Urine WBC 0-5 SEEN, Ur Squamous Epith Cells 0 SEEN, Urine Bacteria 0 SEEN, Urine Mucus 0 SEEN 08/22/24 21:39: POC Glucose 316 H 08/23/24 08:19: POC Glucose 265 H 08/23/24 09:40: WBC 0.9 L*, RBC 2.00 L, Hgb 5.8 L*, Hct 16.8 L, MCV 84.0, MCH 29.0, MCHC 34.5, RDW Std Deviation 45.1 H, RDW Coeff of Silvia 14.6, Plt Count 6 L*, MPV 10.1, Immature Gran % (Auto) 31.400 H, Neut % (Auto) 30.2 L, Lymph % (Auto) 26.7, Lamar % (Auto) 10.5 H, Eos % (Auto) 0.0, Baso % (Auto) 1.2 H, Absolute Neuts (auto) 0.3 L, Absolute Lymphs (auto) 0.23 L, Nucleated RBC % 7.0 H, Differential Comment , Platelet Estimate MKD DEC, Hypochromasia 2+, Anisocytosis 1+, Sodium 136, Potassium 4.2, Chloride 102, Carbon Dioxide 23.3, Anion Gap 11, BUN 19, Creatinine 0.75, Estim Creat Clear Calc 82.52, Est GFR (MDRD) Non-Af 88, BUN/Creatinine Ratio 25.6 H, Glucose 319 H, Calcium 8.4 08/23/24 12:09: POC Glucose 270 H
[2024-08-23 18:55] LABS: Bedside Glucose 244 mg/dL (74-106)
[2024-08-24 01:27] LABS: Pathologist Review May foll
--- NOTE | 2024-08-24 13:43 | PCM.HOSP.N ---
Hospitalist Note Inpatient order was entered in error.
== END 2024-08-23 20:38 | disposition short-term general hospital (02) ==
PROVIDERS: Emergency Medicine; Emergency Provider Emergency Medicine; PCP Family Medicine; Visit Provider Emergency Medicine
DX: R04.0 Epistaxis (principal); C92.00 Acute myeloblastic leukemia, not having achieved remission; D61.818 Other pancytopenia; E11.9 Type 2 diabetes mellitus without complications; R53.1 Weakness
CPT/HCPCS: 30901; 36415; 71045; 80048; 81001; 82962; 85025; 85610; 85730; 86850; 86900; 86901; 86920; 86965; 96361; 96374; 96376; 99285; P9016; P9035; A4216